=== PATIENT | female | born 1975 ===

== ENCOUNTER → 2018-06-27 | Outpatient (CLI) | payer MEDICARE, OTHER ==
[2018-06-27 17:29] LABS: Albumin 4.4 g/dL (3.80-4.90); Albumin/Globulin Ratio 1.69 (1.20-2.10); Anion Gap 9.5 mmol/L (4.00-12.00); Calcium 10.2 mg/dL (8.7-10.3); Carbon Dioxide 19.5 mmol/L (21.6-31.8); Globulin 2.6 g/dL (2.1-3.7); Potassium 5.1 mmol/L (3.5-5.5); Total Bilirubin 0.3 mg/dL (0.3-1.2)
[2018-06-27 17:49] LABS: Hemoglobin A1C 8.8 % (4.0-6.0)
== END | disposition home or self-care (01) ==
LOC: LABWHC1 08:03
PROVIDERS: ATTEND Internal Medicine Endocrinology, Diabetes & Metabolism
DX: E11.65 Type 2 diabetes mellitus with hyperglycemia (principal)
CPT/HCPCS: 36415; 80053; 80061; 82043; 82570; 83036

== ENCOUNTER → 2019-01-30 | Outpatient (CLI) | payer MEDICARE, OTHER ==
[2019-01-30 16:03] LABS: Albumin 4.3 g/dL (3.80-4.90); Albumin/Globulin Ratio 1.34 (1.60-3.17); Anion Gap 8.1 mmol/L (4.00-12.00); BUN/Creat Ratio 24.29 Ratio (12.00-20.00); Carbon Dioxide 20.9 mmol/L (21.6-31.8); Globulin 3.2 g/dL (1.6-3.3); LDL Cholesterol,Calculated 88.2 mg/dL (0.0-131.0); Potassium 5.5 mmol/L (3.5-5.5); Total Bilirubin 0.3 mg/dL (0.3-1.2); Total Protein 7.5 g/dL (6.2-8.2); VLDL Calculation 47.8 mg/dL (5.00-40.00)
[2019-01-30 19:12] LABS: Hemoglobin A1C 7.7 % (4.0-6.0)
== END | disposition home or self-care (01) ==
LOC: LABWHC1 08:01
PROVIDERS: ATTEND Internal Medicine Endocrinology, Diabetes & Metabolism
DX: E11.65 Type 2 diabetes mellitus with hyperglycemia (principal)
CPT/HCPCS: 36415; 80053; 80061; 82043; 82570; 83036; 84443

== ENCOUNTER → 2019-09-04 | Outpatient (CLI) | payer MEDICARE, OTHER ==
[2019-09-04 16:53] LABS: African American GFR (CKD) 39.5 (60.0-200.0); Albumin 4.2 g/dL (3.80-4.90); Albumin/Globulin Ratio 1.56 (1.60-3.17); Anion Gap 9.6 mmol/L (4.00-12.00); BUN/Creat Ratio 31.11 Ratio (12.00-20.00); Calcium 9.6 mg/dL (8.7-10.3); Carbon Dioxide 18.4 mmol/L (21.6-31.8); Chol/HDL Ratio 4.91; Globulin 2.7 g/dL (1.6-3.3); Non-African American GFR(CKD) 34.1 (60.0-200.0); Total Bilirubin 0.2 mg/dL (0.3-1.2); Total Protein 6.9 g/dL (6.2-8.2)
[2019-09-04 17:56] LABS: Urine Creatinine 38.2 mg/dL
[2019-09-04 20:21] LABS: Hemoglobin A1C 6.8 % (4.0-6.0)
== END | disposition home or self-care (01) ==
LOC: LABWHC1 08:15 → EEVIPCON 08:15
PROVIDERS: ATTEND Internal Medicine Endocrinology, Diabetes & Metabolism
DX: E11.65 Type 2 diabetes mellitus with hyperglycemia (principal)
CPT/HCPCS: 36415; 80053; 80061; 82043; 82570; 83036; 84443

== ENCOUNTER → 2019-12-17 | Outpatient (CLI) | payer MEDICARE, OTHER ==
[2019-12-17 16:14] LABS: African American GFR (CKD) 42.4 (60.0-200.0); Albumin 4.3 g/dL (3.80-4.90); Albumin/Globulin Ratio 1.43 (1.60-3.17); Anion Gap 10.1 mmol/L (4.00-12.00); BUN/Creat Ratio 30.59 Ratio (12.00-20.00); Calcium 9.5 mg/dL (8.7-10.3); Carbon Dioxide 15.9 mmol/L (21.6-31.8); Non-African American GFR(CKD) 36.6 (60.0-200.0); Total Bilirubin 0.3 mg/dL (0.2-1.2); Total Protein 7.3 g/dL (6.2-8.2)
== END ==
LOC: LABWHC1 08:02
PROVIDERS: ATTEND Internal Medicine Endocrinology, Diabetes & Metabolism
DX: E11.22 Type 2 diabetes mellitus with diabetic chronic kidney disease (principal)
CPT/HCPCS: 36415; 80053

== ENCOUNTER → 2020-03-27 | Outpatient (CLI) | payer MEDICARE, OTHER ==
[2020-03-27 16:03] LABS: African American GFR (CKD) 42.4 (60.0-200.0); Albumin 4.2 g/dL (3.80-4.90); Albumin/Globulin Ratio 1.45 (1.60-3.17); Anion Gap 6.3 mmol/L (4.00-12.00); BUN/Creat Ratio 31.76 Ratio (12.00-20.00); Calcium 9.3 mg/dL (8.7-10.3); Carbon Dioxide 14.7 mmol/L (21.6-31.8); Chol/HDL Ratio 4.7; Globulin 2.9 g/dL (1.6-3.3); LDL Cholesterol,Calculated 71.6 mg/dL (0.0-131.0); Non-African American GFR(CKD) 36.6 (60.0-200.0); Potassium 5.1 mmol/L (3.5-5.5); Total Bilirubin 0.2 mg/dL (0.2-1.2); Total Protein 7.1 g/dL (6.2-8.2); VLDL Calculation 50.4 mg/dL (5.00-40.00)
[2020-03-27 17:46] LABS: Hemoglobin A1C 6.6 % (4.0-6.0)
[2020-03-27 18:04] LABS: Urine Creatinine 41.6 mg/dL
== END | disposition home or self-care (01) ==
LOC: LABWHC1 07:06
PROVIDERS: ATTEND Internal Medicine Endocrinology, Diabetes & Metabolism
DX: E11.22 Type 2 diabetes mellitus with diabetic chronic kidney disease (principal); N18.9 Chronic kidney disease, unspecified
CPT/HCPCS: 36415; 80053; 80061; 82043; 82570; 83036; 84443

== ENCOUNTER → 2020-07-13 | Outpatient (CLI) | payer MEDICARE, OTHER ==
[2020-07-13 15:42] LABS: African American GFR (CKD) 39.3 (60.0-200.0); Albumin 4.3 g/dL (3.80-4.90); Albumin/Globulin Ratio 1.59 (1.60-3.17); Anion Gap 7.4 mmol/L (4.00-12.00); BUN/Creat Ratio 33.89 Ratio (12.00-20.00); Calcium 9.8 mg/dL (8.7-10.3); Carbon Dioxide 18.6 mmol/L (21.6-31.8); Chol/HDL Ratio 4.79; Globulin 2.7 g/dL (1.6-3.3); LDL Cholesterol,Calculated 89.2 mg/dL (0.0-131.0); Non-African American GFR(CKD) 33.9 (60.0-200.0); Potassium 5.5 mmol/L (3.5-5.5); Total Bilirubin 0.3 mg/dL (0.3-1.2); VLDL Calculation 39.8 mg/dL (5.00-40.00)
[2020-07-13 16:47] LABS: Urine Creatinine 38.8 mg/dL
== END | disposition home or self-care (01) ==
LOC: LABWHC1 08:00
PROVIDERS: ATTEND Internal Medicine Endocrinology, Diabetes & Metabolism
DX: E11.65 Type 2 diabetes mellitus with hyperglycemia (principal)
CPT/HCPCS: 36415; 80053; 80061; 82043; 82570; 83036; 84443

== ENCOUNTER 2020-11-11 07:56 | Inpatient (IN) | payer MEDICARE, OTHER ==
[2020-11-11 08:38] LABS: Basophils % (A) 0 %; Eosinophils % (A) 1 %; HCT 38.5 % (34.0-46.0); HGB 13.2 gm/dL (11.4-16.0); Lymphocytes # (A) 0.5 k/uL (1.0-4.8); Lymphocytes % (A) 15 %; MCH 31.4 pg (25.0-35.0); MCHC 34.2 g/dL (31.0-37.0); MCV 91.5 fL (80.0-100.0); Mean Platelet Volume 8.6; Monocytes # (A) 0.1 k/uL (0-1.0); Monocytes % (A) 2 %; Neutrophils # (A) 2.5 k/uL (1.3-7.7); Neutrophils % (A) 80 %; Platelet Count 101 k/uL (150-450); WBC 3.2 k/uL (3.8-10.6)
[2020-11-11] MEDS ORDERED: ACETAMINOPHEN TAB 500 MG TAB PO STA (08:43)
--- NOTE | 2020-11-11 08:55 | ED ---
General Adult HPI - General Chief complaint: Fall Stated complaint: Fall Time Seen by Provider: 11/11/20 08:00 Source: patient, family, EMS, RN notes reviewed, old records reviewed Mode of arrival: EMS Limitations: altered mental status - History of Present Illness Initial comments: This is a 45-year-old female who presents to the emergency room with a past medical history of significant developmental delay. Patient lives with her parents. Mother states that the patient fell today which is unusual. Patient landed on a soft stool and did not appear to injure herself according to the mother. Mom states she hasn't been eating as much lately and that is not normal. Mother has not noticed the patient coughing or being short of breath there's been no reported vomiting or diarrhea. There's been no fever that the mom knows about. Patient herself states nothing hurts however mom states she is not very reliable. Mom states she appears to be acting normal and walking normally. Mom does not know why she fell today - Related Data Home Medications Medication Instructions Recorded Confirmed Atorvastatin Calcium [Lipitor] 20 mg PO DAILY 11/11/20 11/11/20 Benazepril/Hydrochlorothiazide 1 tab PO DAILY 11/11/20 11/11/20 [Benazepril-Hctz 10-12.5 mg Tab] Canagliflozin [Invokana] 100 mg PO DAILY 11/11/20 11/11/20 Econazole 1% Cream [Spectazole] 1 applic TOPICAL BID 11/11/20 11/11/20 Escitalopram Oxalate [Lexapro] 5 mg PO DAILY 11/11/20 11/11/20 Latanoprost/Pf [Latanoprost 0.005% 1 drop LEFT EYE HS 11/11/20 11/11/20 Eye Drop] Metoprolol Tartrate [Lopressor] 50 mg PO BID 11/11/20 11/11/20 Pioglitazone HCl 45 mg PO DAILY 11/11/20 11/11/20 Repaglinide [Prandin] 2 mg PO TID 11/11/20 11/11/20 Sodium Bicarbonate Tab 650 mg PO BID PRN 11/11/20 11/11/20 Triamcinolone 0.1% Cream [Kenalog 1 applicatio TOPICAL BID 11/11/20 11/11/20 0.1% Cream] gemfibroziL [Lopid] 600 mg PO AC-BID 11/11/20 11/11/20 sitaGLIPtin PHOSPHATE [Januvia] 100 mg PO DAILY 11/11/20 11/11/20 Allergies Allergy/AdvReac Type Severity Reaction Status Date / Time No Known Allergies Allergy Verified 11/11/20 08:52 Review of Systems ROS Statement: Those systems with pertinent positive or pertinent negative responses have been documented in the HPI. ROS Other: All systems not noted in ROS Statement are negative. Past Medical History Past Medical History: Diabetes Mellitus, Hypertension History of Any Multi-Drug Resistant Organisms: None Reported Past Surgical History: No Surgical Hx Reported Past Psychological History: No Psychological Hx Reported Smoking Status: Never smoker Past Alcohol Use History: None Reported Past Drug Use History: None Reported General Exam - General Exam Comments Initial Comments: GENERAL: Patient is well-developed and well-nourished. Patient is nontoxic and well- hydrated and is in no acute distress. ENT: Neck is soft and supple. No significant lymphadenopathy is noted. Oropharynx is clear. Moist mucous membranes. Neck has full range of motion without eliciting any pain. EYES: The sclera were anicteric and conjunctiva were pink and moist. Extraocular movements were intact and pupils were equal round and reactive to light. Eyelids were unremarkable. PULMONARY: Unlabored respirations. Good breath sounds bilaterally. No audible rales rhonchi or wheezing was noted. CARDIOVASCULAR: There is a regular rate and rhythm without any murmurs gallops or rubs. ABDOMEN: Soft and nontender with normal bowel sounds. SKIN: Skin is clear with no lesions or rashes and otherwise unremarkable. NEUROLOGIC: Patient is alert and oriented times one. Cranial nerves II through XII are grossly intact. Motor and sensory are also intact. Normal speech, volume and content. Symmetrical smile. Patient ambulated without problem MUSCULOSKELETAL: Normal extremities with adequate strength and full range of motion. LYMPHATICS: No significant lymphadenopathy is noted PSYCHIATRIC: Normal psychiatric evaluation. Limitations: no limitations Course Vital Signs 11/11/20 07:59 Temperature 100.3 F H Pulse Rate 91 Respiratory 18 Rate Blood Pressure 116/65 O2 Sat by Pulse 95 Oximetry Medical Decision Making - Medical Decision Making EKG shows normal sinus rhythm at 80 bpm DC interval 148 QRS 140 QT interval 390 QTC is 41 per patient's EKG shows a right bundle branch block. No ST segment elevation or depression Chest x-ray shows bilateral pneumonia consistent with Coban. Patient has urinary tract infection started the patient on Rocephin 2 blood cultures. She has renal insufficiency. I spoke with Dr. Connell he agreed to admit the patient admitted the patient vomiting orders I consult the nephrology. - Lab Data Result diagrams: 11/11/20 08:34 11/11/20 08:58 Lab Results 11/11/20 11/11/20 11/11/20 Range/Units 08:34 08:38 08:58 WBC 3.2 L (3.8-10.6) k/uL RBC 4.20 (3.80-5.40) m/uL Hgb 13.2 (11.4-16.0) gm/dL Hct 38.5 (34.0-46.0) % MCV 91.5 (80.0-100.0) fL MCH 31.4 (25.0-35.0) pg MCHC 34.2 (31.0-37.0) g/dL RDW 13.0 (11.5-15.5) % Plt Count 101 L (150-450) k/uL MPV 8.6 Neutrophils % 80 % Lymphocytes % 15 % Monocytes % 2 % Eosinophils % 1 % Basophils % 0 % Neutrophils # 2.5 (1.3-7.7) k/uL Lymphocytes # 0.5 L (1.0-4.8) k/uL Monocytes # 0.1 (0-1.0) k/uL Eosinophils # 0.0 (0-0.7) k/uL Basophils # 0.0 (0-0.2) k/uL Sodium 134 L (137-145) mmol/L Potassium 4.6 (3.5-5.1) mmol/L Chloride 108 H (98-107) mmol/L Carbon Dioxide 12 L (22-30) mmol/L Anion Gap 14 mmol/L BUN 69 H (7-17) mg/dL Creatinine 2.71 H (0.52-1.04) mg/dL Est GFR (CKD-EPI)AfAm 24 (>60 ml/min/1.73 sqM) Est GFR (CKD-EPI)NonAf 21 (>60 ml/min/1.73 sqM) Glucose 339 H (74-99) mg/dL Calcium 9.0 (8.4-10.2) mg/dL Total Bilirubin 0.6 (0.2-1.3) mg/dL AST 72 H (14-36) U/L ALT 34 (4-34) U/L Alkaline Phosphatase 74 (38-126) U/L Total Protein 7.0 (6.3-8.2) g/dL Albumin 3.7 (3.5-5.0) g/dL Urine Color Light Yellow Urine Appearance Clear (Clear) Urine pH 5.5 (5.0-8.0) Ur Specific [place] 1.011 (1.001-1.035) Urine Protein Trace H (Negative) Urine Glucose (UA) 4+ H (Negative) Urine Ketones Negative (Negative) Urine Blood Small H (Negative) Urine Nitrite Negative (Negative) Urine Bilirubin Negative (Negative) Urine Urobilinogen <2.0 (<2.0) mg/dL Ur Leukocyte Esterase Moderate H (Negative) Urine RBC 1 (0-5) /hpf Urine WBC 46 H (0-5) /hpf Urine WBC Clumps Rare H (None) /hpf Ur Squamous Epith Cells <1 (0-4) /hpf Urine Bacteria Occasional H (None) /hpf Hyaline Casts 3 H (0-2) /lpf Urine Mucus Rare H (None) /hpf Coronavirus (PCR) (Not Detectd) 11/11/20 Range/Units 08:58 WBC (3.8-10.6) k/uL RBC (3.80-5.40) m/uL Hgb (11.4-16.0) gm/dL Hct (34.0-46.0) % MCV (80.0-100.0) fL MCH (25.0-35.0) pg MCHC (31.0-37.0) g/dL RDW (11.5-15.5) % Plt Count (150-450) k/uL MPV Neutrophils % % Lymphocytes % % Monocytes % % Eosinophils % % Basophils % % Neutrophils # (1.3-7.7) k/uL Lymphocytes # (1.0-4.8) k/uL Monocytes # (0-1.0) k/uL Eosinophils # (0-0.7) k/uL Basophils # (0-0.2) k/uL Sodium (137-145) mmol/L Potassium (3.5-5.1) mmol/L Chloride (98-107) mmol/L Carbon Dioxide (22-30) mmol/L Anion Gap mmol/L BUN (7-17) mg/dL Creatinine (0.52-1.04) mg/dL Est GFR (CKD-EPI)AfAm (>60 ml/min/1.73 sqM) Est GFR (CKD-EPI)NonAf (>60 ml/min/1.73 sqM) Glucose (74-99) mg/dL Calcium (8.4-10.2) mg/dL Total Bilirubin (0.2-1.3) mg/dL AST (14-36) U/L ALT (4-34) U/L Alkaline Phosphatase (38-126) U/L Total Protein (6.3-8.2) g/dL Albumin (3.5-5.0) g/dL Urine Color Urine Appearance (Clear) Urine pH (5.0-8.0) Ur Specific [place] (1.001-1.035) Urine Protein (Negative) Urine Glucose (UA) (Negative) Urine Ketones (Negative) Urine Blood (Negative) Urine Nitrite (Negative) Urine Bilirubin (Negative) Urine Urobilinogen (<2.0) mg/dL Ur Leukocyte Esterase (Negative) Urine RBC (0-5) /hpf Urine WBC (0-5) /hpf Urine WBC Clumps (None) /hpf Ur Squamous Epith Cells (0-4) /hpf Urine Bacteria (None) /hpf Hyaline Casts (0-2) /lpf Urine Mucus (None) /hpf Coronavirus (PCR) Detected A (Not Detectd) Disposition Clinical Impression: Acute kidney injury, Pneumonia due to COVID-19 virus, Urinary tract infection Disposition: ADMITTED IP TO THIS HOSP Referrals: Becky Mccracken MD [Primary Care Provider] - 1-2 days Time of Disposition: 09:51
[2020-11-11 08:58] LABS: Appearance,Urine Clear (Clear); Bacteria,Urine Occasional /hpf; Bilirubin,Urine Negative (Negative); Blood,Urine Small (Negative); Color,Urine Light Yellow; Glucose,Urine (UA) 4+ (Negative); Hyaline Casts,Urine 3 /lpf (0-2); Ketones,Urine Negative (Negative); Leukocyte Esterase,Urine Moderate (Negative); Mucus,Urine Rare /hpf; Nitrite,Urine Negative (Negative); PH, Urine 5.5 (5.0-8.0); Protein,Urine Trace (Negative); RBC,Urine 1 /hpf (0-5); Specific Gravity,Urine 1.011 (1.001-1.035); Squamous Epithelial Cell,Urine <1 /hpf (0-4); Urobilinogen,Urine <2.0 mg/dL (<2.0); WBC,Urine 46 /hpf (0-5)
--- NOTE | 2020-11-11 09:21 | XR ---
EXAMINATION TYPE: XR chest 2V DATE OF EXAM: 11/11/2020 COMPARISON: None HISTORY: Shortness of breath TECHNIQUE: Frontal and lateral views of the chest are obtained. FINDINGS: There are a few scattered moderate-sized focal airspace opacities in the left lung and a s mall focal opacity in the right hilar region. Findings are most consistent with pneumonic process. Al lograft is no large pleural effusion. There is no pneumothorax. The heart size is normal. The pulmonary vasculature is not congested. The osseous structures are intact. Impression: moderate scattered partially consolidative lung opacities most consistent with pneumonia. Clinical c orrelation follow-up to resolution is recommended. IMPRESSION: No acute cardiopulmonary process.
[2020-11-11 09:25] LABS: Albumin 3.7 g/dL (3.5-5.0); Potassium 4.6 mmol/L (3.5-5.1); Total Bilirubin 0.6 mg/dL (0.2-1.3)
[2020-11-11] MEDS ORDERED: cefTRIAXone IN SWFI 1,000 MG/10 ML SYRINGE IVP STA ×2 (09:40→09:58)
[2020-11-11] MEDS ORDERED: SODIUM CHLORIDE 0.9% 1,000 ML IV ONE (09:51)
[2020-11-11] MEDS ORDERED: BAMLANIVIMAB (EUA) 700 MG, ETESEVIMAB (EUA) 1,400 MG in SODIUM CHLORIDE 0.9% 50 ML IVPB ONE (10:45)
[2020-11-11] MEDS ORDERED: SODIUM BICARBONATE TAB 650 MG TAB PO PRN (11:35)
--- NOTE | 2020-11-11 14:54 | P.HPIM ---
History of Present Illness Patient is a 45-year-old the female with development delay was brought in by mother because of generalized weakness. Found to have Covid 19. Patient did have a low-grade fever yesterday as patient doesn't have any significant syndr omes unsure when her symptoms started. Patient denied any shortness of breath, body aches. Denied any diarrhea. Patient is found to have acute renal failure with creatinine of 2.71 hyponatremic along with metabolic acidosis highly elevated BUN of 6.9 baseline creatinine is around 1.5. Patient was also hypotensive patient is on anti-happens medications which include KEILY inhibitor. Patient is receiving IV fluids at this time nephrology was consulted. Patient did receive a monoclonal antibody infusion today morning. Review of Systems REVIEW OF SYSTEMS: CONSTITUTIONAL: No fever, no malaise, no fatigue. HEENT: No recent visual problems or hearing problems. Denied any sore throat. CARDIOVASCULAR: No chest pain, orthopnea, PND, no palpitations, no syncope. PULMONARY: No shortness of breath, no cough, no hemoptysis. GASTROINTESTINAL: No diarrhea, no nausea, no vomiting, no abdominal pain. NEUROLOGICAL: No headaches, no weakness, no numbness. HEMATOLOGICAL: Denies any bleeding or petechiae. GENITOURINARY: Denies any burning micturition, frequency, or urgency. MUSCULOSKELETAL/RHEUMATOLOGICAL: Denies any joint pain, swelling, or any muscle pain. ENDOCRINE: Denies any polyuria or polydipsia. The rest of the 14-point review of systems is negative. Past Medical History Past Medical History: Diabetes Mellitus, Hypertension History of Any Multi-Drug Resistant Organisms: None Reported Past Surgical History: No Surgical Hx Reported Additional Past Surgical History / Comment(s): left eye surgery as an infant Past Psychological History: No Psychological Hx Reported Smoking Status: Never smoker Past Alcohol Use History: None Reported Past Drug Use History: None Reported Medications and Allergies Home Medications Medication Instructions Recorded Confirmed Type Atorvastatin Calcium [Lipitor] 20 mg PO DAILY 11/11/20 11/11/20 History Benazepril/Hydrochlorothiazide 1 tab PO DAILY 11/11/20 11/11/20 History [Benazepril-Hctz 10-12.5 mg Tab] Canagliflozin [Invokana] 100 mg PO DAILY 11/11/20 11/11/20 History Econazole 1% Cream [Spectazole] 1 applic TOPICAL BID 11/11/20 11/11/20 History Escitalopram Oxalate [Lexapro] 5 mg PO DAILY 11/11/20 11/11/20 History Latanoprost/Pf [Latanoprost 0.005% 1 drop LEFT EYE HS 11/11/20 11/11/20 History Eye Drop] Metoprolol Tartrate [Lopressor] 50 mg PO BID 11/11/20 11/11/20 History Pioglitazone HCl 45 mg PO DAILY 11/11/20 11/11/20 History Repaglinide [Prandin] 2 mg PO TID 11/11/20 11/11/20 History Sodium Bicarbonate Tab 650 mg PO BID PRN 11/11/20 11/11/20 History Triamcinolone 0.1% Cream [Kenalog 1 applicatio TOPICAL BID 11/11/20 11/11/20 History 0.1% Cream] gemfibroziL [Lopid] 600 mg PO AC-BID 11/11/20 11/11/20 History sitaGLIPtin PHOSPHATE [Januvia] 100 mg PO DAILY 11/11/20 11/11/20 History Allergies Allergy/AdvReac Type Severity Reaction Status Date / Time No Known Allergies Allergy Verified 11/11/20 08:52 Physical Exam Vitals: Vital Signs Temp Pulse Pulse Resp BP BP Pulse Ox 11/11/20 13:59 74 18 98/55 94 L 11/11/20 10:51 98.6 F 18 97/56 95 11/11/20 07:59 100.3 F H 91 18 116/65 95 Intake and Output 11/10/20 11/11/20 11/11/20 22:59 06:59 14:59 Other: Weight 95.254 kg PHYSICAL EXAMINATION: GENERAL: The patient is alert and oriented x3, not in any acute distress. Well developed, well nourished. HEENT: Pupils are round and equally reacting to light. EOMI. No scleral icterus. No conjunctival pallor. Normocephalic, atraumatic. No pharyngeal erythema. No thyromegaly. CARDIOVASCULAR: S1 and S2 present. No murmurs, rubs, or gallops. PULMONARY: Chest is clear to auscultation, no wheezing or crackles. ABDOMEN: Soft, nontender, nondistended, normoactive bowel sounds. No palpable organomegaly. MUSCULOSKELETAL: No joint swelling or deformity. EXTREMITIES: No cyanosis, clubbing, or pedal edema. NEUROLOGICAL: Gross neurological examination did not reveal any focal deficits. SKIN: No rashes. Results CBC & Chem 7: 11/11/20 08:34 11/11/20 08:58 Labs: Abnormal Lab Results - Last 24 Hours (Table) 11/11/20 11/11/20 11/11/20 Range/Units 08:34 08:38 08:58 WBC 3.2 L (3.8-10.6) k/uL Plt Count 101 L (150-450) k/uL Lymphocytes # 0.5 L (1.0-4.8) k/uL Sodium 134 L (137-145) mmol/L Chloride 108 H (98-107) mmol/L Carbon Dioxide 12 L (22-30) mmol/L BUN 69 H (7-17) mg/dL Creatinine 2.71 H (0.52-1.04) mg/dL Glucose 339 H (74-99) mg/dL AST 72 H (14-36) U/L Urine Protein Trace H (Negative) Urine Glucose (UA) 4+ H (Negative) Urine Blood Small H (Negative) Ur Leukocyte Esterase Moderate H (Negative) Urine WBC 46 H (0-5) /hpf Urine WBC Clumps Rare H (None) /hpf Urine Bacteria Occasional H (None) /hpf Hyaline Casts 3 H (0-2) /lpf Urine Mucus Rare H (None) /hpf Coronavirus (PCR) (Not Detectd) 11/11/20 Range/Units 08:58 WBC (3.8-10.6) k/uL Plt Count (150-450) k/uL Lymphocytes # (1.0-4.8) k/uL Sodium (137-145) mmol/L Chloride (98-107) mmol/L Carbon Dioxide (22-30) mmol/L BUN (7-17) mg/dL Creatinine (0.52-1.04) mg/dL Glucose (74-99) mg/dL AST (14-36) U/L Urine Protein (Negative) Urine Glucose (UA) (Negative) Urine Blood (Negative) Ur Leukocyte Esterase (Negative) Urine WBC (0-5) /hpf Urine WBC Clumps (None) /hpf Urine Bacteria (None) /hpf Hyaline Casts (0-2) /lpf Urine Mucus (None) /hpf Coronavirus (PCR) Detected A (Not Detectd) Microbiology - Last 24 Hours (Table) 11/11/20 08:38 Urine Culture - Preliminary Urine,Voided Thrombosis Risk Factor Assmnt - Choose All That Apply Any of the Below Risk Factors Present?: Yes Each Factor Represents 1 point: Age 41-60 years Other Risk Factors: No Other congenital or acquired thrombophilia - If yes, enter type in comment: No Thrombosis Risk Factor Assessment Total Risk Factor Score: 1 Thrombosis Risk Factor Assessment Level: Low Risk Assessment and Plan Plan: -Acute renal failure: Prerenal azotemia, from dehydration intravascular depletion from a infection. Patient was started on IV fluids and repeat basic metabolic profile again tomorrow. Creatinine expected to improve with this. -Covid 19 pneumonia. Patient was started on Covid vitamins patient will not need any systemic steroids at this time patient received multiple antibody infusion patient is not hypoxic not requiring oxygen. -Type 2 diabetes mellitus uncontrolled elevated blood sugars continue with present regimen along with sliding scale titration depending on her blood sugars tomorrow - Abnormal urine analysis possibly asymptomatic bacteriuria patient was started on IV antibiotics which probably will be continued for now will not require any antibiotics upon discharge -Hypovolemic hyponatremia: Expected with IV fluids -Non-anion gap as well as anion gap metabolic acidosis secondary to acute renal failure patient may have had lactic acidosis. -Chronic kidney disease stage III from diabetic nephropathy patient has trace protein in the urine. -Hyperlipidemia -Hypertension patient is presently hypotensive hold off antiemesis medications except for beta eddie to avoid reflex tachycardia -DVT prophylaxis with subcutaneous heparin not a candidate for Lovenox because o f renal failure
[2020-11-11] MEDS ORDERED: SODIUM CHLORIDE 0.9% 1,000 ML IV SCH (15:00)
[2020-11-11] MEDS: REPAGLINIDE 1 MG TAB PO SCH ×2 (16:25→21:51)
[2020-11-11] MEDS: HEPARIN SODIUM,PORCINE/PF 5,000 UNIT/0.5 ML SYRINGE SQ SCH (16:25)
--- NOTE | 2020-11-11 16:25 | P.NPCON ---
History of Present Illness - Reason for Consult Consult date: 11/11/20 acute renal failure - Chief Complaint Falls at home - History of Present Illness 45-year-old female admitted to the hospital with the above complaints. She has developmental today. Most of the history obtained from the chart and the nursing staff. She has chronic kidney disease stage III with a baseline creatinine of 1.7-1.8 MG per DL, suspected diabetes and hypertension. She is on invonka, benazapril/hydrochlorothiazide, at home. She had poor oral intake prior to admission. No nausea vomiting or diarrhea. No recent NSAID use or contrast studies. She had urinary tract infection and Covid 19 Review of Systems Constitutional: Reports as per HPI Past Medical History Past Medical History: Diabetes Mellitus, Hypertension History of Any Multi-Drug Resistant Organisms: None Reported Past Surgical History: No Surgical Hx Reported Additional Past Surgical History / Comment(s): left eye surgery as an Past Psychological History: No Psychological Hx Reported Smoking Status: Never smoker Past Alcohol Use History: None Reported Past Drug Use History: None Reported Medications and Allergies Home Medications Medication Instructions Recorded Confirmed Type Atorvastatin Calcium [Lipitor] 20 mg PO DAILY 11/11/20 11/11/20 History Benazepril/Hydrochlorothiazide 1 tab PO DAILY 11/11/20 11/11/20 History [Benazepril-Hctz 10-12.5 mg Tab] Canagliflozin [Invokana] 100 mg PO DAILY 11/11/20 11/11/20 History Econazole 1% Cream [Spectazole] 1 applic TOPICAL BID 11/11/20 11/11/20 History Escitalopram Oxalate [Lexapro] 5 mg PO DAILY 11/11/20 11/11/20 History Latanoprost/Pf [Latanoprost 0.005% 1 drop LEFT EYE HS 11/11/20 11/11/20 History Eye Drop] Metoprolol Tartrate [Lopressor] 50 mg PO BID 11/11/20 11/11/20 History Pioglitazone HCl 45 mg PO DAILY 11/11/20 11/11/20 History Repaglinide [Prandin] 2 mg PO TID 11/11/20 11/11/20 History Sodium Bicarbonate Tab 650 mg PO BID PRN 11/11/20 11/11/20 History Triamcinolone 0.1% Cream [Kenalog 1 applicatio TOPICAL BID 11/11/20 11/11/20 History 0.1% Cream] gemfibroziL [Lopid] 600 mg PO AC-BID 11/11/20 11/11/20 History sitaGLIPtin PHOSPHATE [Januvia] 100 mg PO DAILY 11/11/20 11/11/20 History Allergies Allergy/AdvReac Type Severity Reaction Status Date / Time No Known Allergies Allergy Verified 11/11/20 08:52 Physical Exam Vitals: Vital Signs Temp Pulse Pulse Resp BP BP Pulse Ox 11/11/20 13:59 74 18 98/55 94 L 11/11/20 10:51 98.6 F 18 97/56 95 11/11/20 07:59 100.3 F H 91 18 116/65 95 Intake and Output 11/11/20 11/11/20 11/11/20 06:59 14:59 22:59 Other: Weight 95.254 kg Exam limited secondary to Covid 19 pandemic to limit PPE Results - Lab Results Most recent lab results Calcium 9.0 mg/dL (8.4-10.2) 11/11/20 08:58 11/11/20 08:34 11/11/20 08:58 Assessment and Plan Assessment: #1 acute kidney injury secondary to hemodynamic ATN with low blood pressures and concomitant use of hydrochlorothiazide and benazapril. #2 CK D stage III suspected diabetes and hypertension, baseline creatinine 1.7- 1.8 MG per DL. #3 complicated urinary tract infection #4 hypotensive episodes #5 metabolic acidosis Plan: #1 change normal saline to bicarbonate drip. Agree with holding hydrochlorothiazide and benazapril #2 hold invikona with acute kidney injury #3 check CPK. Bladder scan to rule out urinary retention #4 renal ultrasound for size #5 labs in the morning. #6 avoid nephrotoxic agents and hypotensive episodes.
[2020-11-11 17:21] LABS: Glucose,Whole Blood 386 mg/dL (75-99)
--- NOTE | 2020-11-11 17:23 | US ---
EXAMINATION TYPE: US renals and bladder DATE OF EXAM: 11/11/2020 COMPARISON: NONE CLINICAL HISTORY: diomedes. DIOMEDES, Covid EXAM MEASUREMENTS: Right Kidney: 11.6 x 5.1 x 4.7 cm Left Kidney: 11.3 x 5.3 x 4.4 cm Right Kidney: No evidence of hydro, cyst lower lateral= 1.2 x 1.2 x 1.2 cm Left Kidney: No evidence of hydro, cyst lower lateral= 1.1 x 0.9 x 1.2 cm Bladder: wnl Bilateral Jets seen: No IMPRESSION: No evidence of solid renal mass or obstruction. No evidence of a bladder mass.
[2020-11-11] MEDS: INSULIN ASPART (NovoLOG) 100 UNIT/ML VIAL SQ SCH ×2 (17:28→21:52)
[2020-11-11] MEDS: DEXTROSE 5% IN WATER 1,000 ML with SODIUM BICARB (1 MEQ/ML) 150 ML IV SCH (17:42)
[2020-11-11 19:45] LABS: Glucose,Whole Blood 442 mg/dL (75-99)
[2020-11-11] MEDS: CLOTRIMAZOLE 1% CREAM 30 GM TUBE TOPICAL SCH (21:51)
[2020-11-11] MEDS: METOPROLOL TARTRATE 50 MG TAB PO SCH (21:51)
[2020-11-11] MEDS: TRIAMCINOLONE 0.1% CREAM 80 GM TUBE TOPICAL SCH (21:51)
[2020-11-12] MEDS: HEPARIN SODIUM,PORCINE/PF 5,000 UNIT/0.5 ML SYRINGE SQ SCH ×3 (01:02→16:42)
[2020-11-12 07:57] LABS: Glucose,Whole Blood 366 mg/dL (75-99)
[2020-11-12] MEDS: INSULIN ASPART (NovoLOG) 100 UNIT/ML VIAL SQ SCH ×4 (08:33→22:08)
[2020-11-12] MEDS ORDERED: Canagliflozin [Invokana] PO SCH (09:00)
[2020-11-12] MEDS: FENOFIBRATE 160 MG TAB PO SCH (09:36)
[2020-11-12] MEDS: ATORVASTATIN 20 MG TAB PO SCH (09:36)
[2020-11-12] MEDS: REPAGLINIDE 1 MG TAB PO SCH ×3 (09:38→22:07)
[2020-11-12] MEDS: ESCITALOPRAM 5 MG TAB PO SCH (09:38)
[2020-11-12] MEDS: LINAGLIPTIN 5 MG TABLET PO SCH (09:38)
[2020-11-12] MEDS: PIOGLITAZONE 45 MG TAB PO SCH (09:38)
[2020-11-12] MEDS: CLOTRIMAZOLE 1% CREAM 30 GM TUBE TOPICAL SCH ×2 (10:20→22:07)
[2020-11-12] MEDS: TRIAMCINOLONE 0.1% CREAM 80 GM TUBE TOPICAL SCH ×2 (10:20→22:07)
--- NOTE | 2020-11-12 11:59 | P.PN ---
Subjective Patient is a 45-year-old the female with development delay was brought in by mother because of generalized weakness. Found to have Covid 19. Patient did have a low-grade fever yesterday as patient doesn't have any significant syndromes unsure when her symptoms started. Patient denied any shortness of breath, body aches. Denied any diarrhea. Patient is found to have acute renal failure with creatinine of 2.71 hyponatremic along with metabolic acidosis highly elevated BUN of 6.9 baseline creatinine is around 1.5. Patient was also hypotensive patient is on anti-hypertensive medications which include KEILY inhibitor. Patient is receiving IV fluids at this time nephrology was consulted. Patient did receive a monoclonal antibody infusion today morning. 11/12/2020 Unfortunately patient is requiring oxygen and desaturated without oxygen because of which I'm consulted pulmonary patient will be started on Decadron do not have any repeat basic metabolic profile available at this time. Patient's blood sugars are very high patient will be started on long-acting insulin tonight along with sliding scale with each meal. Patient received monoclonal antibody infusion yesterday Review of systems: Patient is mostly nonverbal but does answer questions say she is fine for most of the questions. All inpatient medications were reviewed and appropriate changes in these medications as dictated in the interval history and assessment and plan. Objective - Vital Signs Vital signs: Vital Signs Temp 98 F 11/12/20 07:06 Pulse 88 11/12/20 11:43 Resp 24 11/12/20 07:06 BP 102/66 11/12/20 07:06 Pulse Ox 87 L 11/12/20 11:43 Intake & Output 11/11/20 11/12/20 11/12/20 18:59 06:59 18:59 Output Total 1100 Balance -1100 Weight 95.254 kg Output: Urine 1100 Other: # Voids 2 2 1 - Exam PHYSICAL EXAMINATION: GENERAL: The patient is alert and mostly nonverbal unable to assess his orie ntation, not in any acute distress. Well developed, well nourished. Does appear to have some developmental delay HEENT: Pupils are round and equally reacting to light. EOMI. No scleral icterus. No conjunctival pallor. Normocephalic, atraumatic. No pharyngeal erythema. No thyromegaly. CARDIOVASCULAR: S1 and S2 present. No murmurs, rubs, or gallops. PULMONARY: Chest is clear to auscultation, no wheezing or crackles. ABDOMEN: Soft, nontender, nondistended, normoactive bowel sounds. No palpable organomegaly. MUSCULOSKELETAL: No joint swelling or deformity. EXTREMITIES: No cyanosis, clubbing, or pedal edema. NEUROLOGICAL: Gross neurological examination did not reveal any focal deficits. SKIN: No rashes. - Labs CBC & Chem 7: 11/11/20 08:34 11/11/20 08:58 Labs: Abnormal Lab Results - Last 24 Hours (Table) 11/11/20 11/11/20 11/11/20 Range/Units 08:58 17:09 19:43 POC Glucose (mg/dL) 386 H 442 H (75-99) mg/dL Creatine Kinase 232 H (30-135) U/L 11/12/20 Range/Units 07:56 POC Glucose (mg/dL) 366 H (75-99) mg/dL Creatine Kinase (30-135) U/L Microbiology - Last 24 Hours (Table) 11/11/20 08:38 Urine Culture - Preliminary Urine,Voided Assessment and Plan Plan: -Acute renal failure: Prerenal azotemia, from dehydration intravascular depletion from a infection. Patient was started on IV fluids and basic metabolic profile again is not available today. Creatinine expected to improve with this. Holding off on KEILY inhibitor and hydrochlorothiazide -Covid 19 pneumonia, acute hypoxia. Patient was started on Covid vitamins patient will will be started on systemic steroids at this time patient received monoclonal antibody infusion. -Type 2 diabetes mellitus uncontrolled elevated blood sugars continue with present regimen along with sliding scale titration depending on her blood sugars tomorrow - Abnormal urine analysis possibly asymptomatic bacteriuria patient was started on IV antibiotics which probably will be continued for now will not require any antibiotics upon discharge. Patient will complete 3 doses by tomorrow and medics will be discontinued then -Hypovolemic hyponatremia: Expected with IV fluids -Non-anion gap as well as anion gap metabolic acidosis secondary to acute renal failure patient may have had lactic acidosis. -Chronic kidney disease stage III from diabetic nephropathy patient has trace protein in the urine. -Hyperlipidemia -Hypertension patient is presently hypotensive hold off antiemesis medications except for beta eddie to avoid reflex tachycardia -DVT prophylaxis with subcutaneous heparin not a candidate for Lovenox because of renal failure
[2020-11-12 12:16] LABS: Anion Gap 17.1 mmol/L (4.00-12.00); BUN/Creat Ratio 25.19 Ratio (12.00-20.00); Calcium 8.6 mg/dL (8.7-10.3); Carbon Dioxide 14.9 mmol/L (21.6-31.8); Non-African American GFR(CKD) 20.7 (60.0-200.0); Potassium 4.4 mmol/L (3.5-5.5)
[2020-11-12 12:16] LABS: Glucose,Whole Blood 346 mg/dL (75-99)
[2020-11-12] MEDS: DEXTROSE 5% IN WATER 1,000 ML with SODIUM BICARB (1 MEQ/ML) 150 ML IV SCH (12:19)
[2020-11-12] MEDS: METOPROLOL TARTRATE 50 MG TAB PO SCH ×2 (12:40→22:13)
[2020-11-12] MEDS: ZINC SULFATE 220 MG CAP PO SCH (12:43)
[2020-11-12] MEDS: dexAMETHasone 2 MG TAB PO SCH (12:43)
--- NOTE | 2020-11-12 14:31 | P.PN ---
Subjective Progress Note Date: 11/12/20 Follow-up for acute kidney injury. Objective - Vital Signs Vital signs: Vital Signs Temp 98 F 11/12/20 07:06 Pulse 79 11/12/20 12:34 Resp 24 11/12/20 07:06 BP 87/58 11/12/20 12:34 Pulse Ox 93 L 11/12/20 12:34 Intake & Output 11/11/20 11/12/20 11/12/20 18:59 06:59 18:59 Output Total 1100 Balance -1100 Weight 95.254 kg Output: Urine 1100 Other: # Voids 2 2 1 - Exam Exam limited secondary to Covid 19 pandemic to limit PPE - Labs CBC & Chem 7: 11/11/20 08:34 11/12/20 05:53 Labs: Abnormal Lab Results - Last 24 Hours (Table) 11/11/20 11/11/20 11/11/20 Range/Units 08:58 17:09 19:43 Carbon Dioxide (21.6-31.8) mmol/L Anion Gap (4.00-12.00) mmol/L BUN (9.0-27.0) mg/dL Creatinine (0.6-1.5) mg/dL Est GFR (CKD-EPI)AfAm (60.0-200.0) Est GFR (CKD-EPI)NonAf (60.0-200.0) BUN/Creatinine Ratio (12.00-20.00) Ratio Glucose (70-110) mg/dL POC Glucose (mg/dL) 386 H 442 H (75-99) mg/dL Calcium (8.7-10.3) mg/dL Creatine Kinase 232 H (30-135) U/L 11/12/20 11/12/20 11/12/20 Range/Units 05:53 07:56 12:15 Carbon Dioxide 14.9 L (21.6-31.8) mmol/L Anion Gap 17.10 H (4.00-12.00) mmol/L BUN 68.0 H (9.0-27.0) mg/dL Creatinine 2.7 H (0.6-1.5) mg/dL Est GFR (CKD-EPI)AfAm 24.0 L (60.0-200.0) Est GFR (CKD-EPI)NonAf 20.7 L (60.0-200.0) BUN/Creatinine Ratio 25.19 H (12.00-20.00) Ratio Glucose 379 H (70-110) mg/dL POC Glucose (mg/dL) 366 H 346 H (75-99) mg/dL Calcium 8.6 L (8.7-10.3) mg/dL Creatine Kinase (30-135) U/L Microbiology - Last 24 Hours (Table) 11/11/20 08:38 Urine Culture - Preliminary Urine,Voided Gram Neg Bacilli Assessment and Plan Assessment: #1 acute kidney injury secondary to hemodynamic ATN with low blood pressures and concomitant use of hydrochlorothiazide and benazapril. #2 CK D stage III suspected diabetes and hypertension, baseline creatinine 1.7- 1.8 MG per DL. #3 complicated urinary tract infection #4 hypotensive episodes #5 metabolic acidosis #6 diabetes uncontrolled Plan: #1 continue bicarb drip, renal function stable. Agree with holding hydrochlorothiazide and benazapril #2 hold invikona with acute kidney injury #3 check ABG for metabolic acidosis. #4 renal ultrasound no hydronephrosis. #5 strict diabetes control. #6 avoid nephrotoxic agents and hypotensive episodes. #7 add midodrine for hemodynamic support.
[2020-11-12] MEDS: MIDODRINE 5 MG TAB PO SCH (15:17)
[2020-11-12 15:22] LABS: ABG Base Excess -0.6 mmol/L; ABG HCO3 23 mmol/L (21-25); ABG Oxygen Saturation 91.7 % (94-97); ABG PCO2 33 mmHg (35-45); ABG PH 7.46 (7.35-7.45); ABG PO2 67 mmHg (83-108); ABG TCO2 24 mmol/L (19-24); Allen Test Performed? Yes
[2020-11-12] MEDS: SODIUM CHLORIDE 0.9% 1,000 ML IV SCH (16:42)
[2020-11-12 17:56] LABS: Glucose,Whole Blood 329 mg/dL (75-99)
[2020-11-12 19:47] LABS: Glucose,Whole Blood 452 mg/dL (75-99)
[2020-11-12] MEDS ORDERED: INSULIN DETEMIR (LEVEMIR) 100 UNIT/ML SYR SQ SCH (21:00)
[2020-11-12] MEDS: LATANOPROST 0.005% OPHTH DROPS 2.5 ML BTL LEFT EYE SCH (22:07)
[2020-11-13] MEDS: HEPARIN SODIUM,PORCINE/PF 5,000 UNIT/0.5 ML SYRINGE SQ SCH ×3 (00:03→18:01)
[2020-11-13] MEDS: SODIUM CHLORIDE 0.9% 1,000 ML IV SCH ×2 (04:46→16:40)
[2020-11-13 07:05] LABS: Glucose,Whole Blood 463 mg/dL (75-99)
[2020-11-13] MEDS: ATORVASTATIN 20 MG TAB PO SCH (08:52)
[2020-11-13] MEDS: FENOFIBRATE 160 MG TAB PO SCH (08:52)
[2020-11-13] MEDS: ZINC SULFATE 220 MG CAP PO SCH (08:52)
[2020-11-13] MEDS: INSULIN ASPART (NovoLOG) 100 UNIT/ML VIAL SQ SCH ×6 (08:52→21:36)
[2020-11-13] MEDS: dexAMETHasone 2 MG TAB PO SCH (08:52)
[2020-11-13] MEDS: CLOTRIMAZOLE 1% CREAM 30 GM TUBE TOPICAL SCH ×2 (08:53→21:36)
[2020-11-13] MEDS: LINAGLIPTIN 5 MG TABLET PO SCH (08:53)
[2020-11-13] MEDS: MIDODRINE 5 MG TAB PO SCH ×3 (08:53→18:01)
[2020-11-13] MEDS: PIOGLITAZONE 45 MG TAB PO SCH (08:53)
[2020-11-13] MEDS: METOPROLOL TARTRATE 50 MG TAB PO SCH ×2 (08:53→21:14)
[2020-11-13] MEDS: TRIAMCINOLONE 0.1% CREAM 80 GM TUBE TOPICAL SCH ×2 (08:54→21:37)
[2020-11-13 09:08] LABS: African American GFR (CKD) 31 (>60 ml/min/1.73 sqM); Anion Gap 12 mmol/L; Blood Urea Nitrogen 70 mg/dL (7-17); Calcium 8.9 mg/dL (8.4-10.2); Carbon Dioxide 19 mmol/L (22-30); Chloride 106 mmol/L (98-107); Glucose 409 mg/dL (74-99); Non-African American GFR(CKD) 27 (>60 ml/min/1.73 sqM); Potassium 4.9 mmol/L (3.5-5.1); Sodium 137 mmol/L (137-145)
[2020-11-13] MEDS: ESCITALOPRAM 5 MG TAB PO SCH (10:12)
[2020-11-13] MEDS: REPAGLINIDE 1 MG TAB PO SCH ×3 (10:13→18:01)
[2020-11-13 11:30] LABS: Glucose,Whole Blood 392 mg/dL (75-99)
--- NOTE | 2020-11-13 14:41 | P.CNPUL ---
History of Present Illness Consult date: 11/13/20 Reason for consult: pneumonia Chief complaint: Generalized weakness and low-grade fever History of present illness: This is a 45-year-old female with history of developmental delay. Lives with her parents, noted to be generally weak by her mother, and she fell fell at home which is unusual for the patient according to her mother. No self-inflicted injury. And according to her mother she has not been eating well, did not have any shortness of breath or diarrhea. She was noted to have low-grade fever in the ER. And according to her mother she was generally weak. Hence patient was tested for rotavirus, and she was noted to be positive for covid 19 chest x-ray showed multiple focal infiltrates bilaterally left more so than right. And it is consistent with Covid 19 pneumonia. Her O2 saturation was mostly in the 90s since admission except one O2 saturation was 89% on room air. Labs showed evidence of leukopenia with WBC count of 3.2, thrombocytopenia with platelets of 101. And the relative lymphopenia. Patient was also noted to have possibly acute kidney injury with BUN 69 and creatinine 2.71. She was also noted to have a mild anion gap metabolic acidosis with anion gap of 17. Her sugars were high as high as 452. Negative ketones in the urine. Considering her abnormal chest x-ray, abnormal renal profile, abnormal labs and clinical symptoms, patient was admitted and this consult was initiated. The patient herself is a very poor historian. She does have significant developmental delay. Review of Systems ROS unobtainable: due to mental status Past Medical History Past Medical History: Diabetes Mellitus, Hypertension History of Any Multi-Drug Resistant Organisms: None Reported Past Surgical History: No Surgical Hx Reported Additional Past Surgical History / Comment(s): left eye surgery as an infant Past Psychological History: No Psychological Hx Reported Smoking Status: Never smoker Past Alcohol Use History: None Reported Past Drug Use History: None Reported Medications and Allergies Home Medications Medication Instructions Recorded Confirmed Type Atorvastatin Calcium [Lipitor] 20 mg PO DAILY 11/11/20 11/11/20 History Benazepril/Hydrochlorothiazide 1 tab PO DAILY 11/11/20 11/11/20 History [Benazepril-Hctz 10-12.5 mg Tab] Canagliflozin [Invokana] 100 mg PO DAILY 11/11/20 11/11/20 History Econazole 1% Cream [Spectazole] 1 applic TOPICAL BID 11/11/20 11/11/20 History Escitalopram Oxalate [Lexapro] 5 mg PO DAILY 11/11/20 11/11/20 History Latanoprost/Pf [Latanoprost 0.005% 1 drop LEFT EYE HS 11/11/20 11/11/20 History Eye Drop] Metoprolol Tartrate [Lopressor] 50 mg PO BID 11/11/20 11/11/20 History Pioglitazone HCl 45 mg PO DAILY 11/11/20 11/11/20 History Repaglinide [Prandin] 2 mg PO TID 11/11/20 11/11/20 History Sodium Bicarbonate Tab 650 mg PO BID PRN 11/11/20 11/11/20 History Triamcinolone 0.1% Cream [Kenalog 1 applicatio TOPICAL BID 11/11/20 11/11/20 History 0.1% Cream] gemfibroziL [Lopid] 600 mg PO AC-BID 11/11/20 11/11/20 History sitaGLIPtin PHOSPHATE [Januvia] 100 mg PO DAILY 11/11/20 11/11/20 History Allergies Allergy/AdvReac Type Severity Reaction Status Date / Time No Known Allergies Allergy Verified 11/11/20 08:52 Physical Exam Vitals: Vital Signs Temp Pulse Resp BP Pulse Ox 11/13/20 08:49 98.6 F 56 L 16 88/58 91 L 11/13/20 02:00 97.5 F L 80 16 116/75 92 L 11/12/20 20:00 98.8 F 63 18 95/62 94 L Intake and Output 11/12/20 11/13/20 11/13/20 22:59 06:59 14:59 Output Total 400 800 Balance -400 -800 Output: Urine 400 800 Other: Voiding Method Toilet Physical Exam: Revealed 45-year-old female obese, in no distress, presently on r oom air. Head: Atraumatic, normocephalic. HEENT: PERRLA, EOMI, nonicteric, dry mucous membranes [Neck is supple.] [No neck masses.] [No thyromegaly.] [No JVD.] Chest: [Symmetrical chest expansion, minimal fine crackles at the bases especially at the left base. Cardiac Exam: Distant S1 and S2, no S3 gallop, no murmur. Abdomen: [Obese, Soft, nontender, no megaly, no rebound, no guarding, normal bowel sounds.] Extremities: [No clubbing, no edema, no cyanosis.] Neurological Exam: Follows simple instructions, but extremely slow and has mental developmental delay Psychiatric: Normal mood, pleasant affect, slow mentation. Skin: No rashes. Results - Laboratory Findings CBC and BMP: 11/11/20 08:34 11/13/20 05:47 ABG ABG pH 7.46 (7.35-7.45) H 11/12/20 15:12 ABG pCO2 33 mmHg (35-45) L 11/12/20 15:12 ABG pO2 67 mmHg (83-108) L 11/12/20 15:12 ABG O2 Saturation 91.7 % (94-97) L 11/12/20 15:12 Abnormal lab findings: Abnormal Labs 11/11/20 11/11/20 11/11/20 08:34 08:38 08:58 WBC 3.2 L Plt Count 101 L Lymphocytes # 0.5 L ABG pH ABG pCO2 ABG pO2 ABG O2 Saturation Sodium 134 L Chloride 108 H Carbon Dioxide 12 L Anion Gap BUN 69 H Creatinine 2.71 H Est GFR (CKD-EPI)AfAm Est GFR (CKD-EPI)NonAf BUN/Creatinine Ratio Glucose 339 H POC Glucose (mg/dL) Calcium AST 72 H Creatine Kinase Urine Protein Trace H Urine Glucose (UA) 4+ H Urine Blood Small H Ur Leukocyte Esterase Moderate H Urine WBC 46 H Urine WBC Clumps Rare H Urine Bacteria Occasional H Hyaline Casts 3 H Urine Mucus Rare H Coronavirus (PCR) 11/11/20 11/11/20 11/11/20 08:58 08:58 17:09 WBC Plt Count Lymphocytes # ABG pH ABG pCO2 ABG pO2 ABG O2 Saturation Sodium Chloride Carbon Dioxide Anion Gap BUN Creatinine Est GFR (CKD-EPI)AfAm Est GFR (CKD-EPI)NonAf BUN/Creatinine Ratio Glucose POC Glucose (mg/dL) 386 H Calcium AST Creatine Kinase 232 H Urine Protein Urine Glucose (UA) Urine Blood Ur Leukocyte Esterase Urine WBC Urine WBC Clumps Urine Bacteria Hyaline Casts Urine Mucus Coronavirus (PCR) Detected A 11/11/20 11/12/20 11/12/20 19:43 05:53 07:56 WBC Plt Count Lymphocytes # ABG pH ABG pCO2 ABG pO2 ABG O2 Saturation Sodium Chloride Carbon Dioxide 14.9 L Anion Gap 17.10 H BUN 68.0 H Creatinine 2.7 H Est GFR (CKD-EPI)AfAm 24.0 L Est GFR (CKD-EPI)NonAf 20.7 L BUN/Creatinine Ratio 25.19 H Glucose 379 H POC Glucose (mg/dL) 442 H 366 H Calcium 8.6 L AST Creatine Kinase Urine Protein Urine Glucose (UA) Urine Blood Ur Leukocyte Esterase Urine WBC Urine WBC Clumps Urine Bacteria Hyaline Casts Urine Mucus Coronavirus (PCR) 11/12/20 11/12/20 11/12/20 12:15 15:12 17:55 WBC Plt Count Lymphocytes # ABG pH 7.46 H ABG pCO2 33 L ABG pO2 67 L ABG O2 Saturation 91.7 L Sodium Chloride Carbon Dioxide Anion Gap BUN Creatinine Est GFR (CKD-EPI)AfAm Est GFR (CKD-EPI)NonAf BUN/Creatinine Ratio Glucose POC Glucose (mg/dL) 346 H 329 H Calcium AST Creatine Kinase Urine Protein Urine Glucose (UA) Urine Blood Ur Leukocyte Esterase Urine WBC Urine WBC Clumps Urine Bacteria Hyaline Casts Urine Mucus Coronavirus (PCR) 11/12/20 11/13/20 11/13/20 19:46 05:47 07:03 WBC Plt Count Lymphocytes # ABG pH ABG pCO2 ABG pO2 ABG O2 Saturation Sodium Chloride Carbon Dioxide 19 L Anion Gap BUN 70 H Creatinine 2.21 H Est GFR (CKD-EPI)AfAm Est GFR (CKD-EPI)NonAf BUN/Creatinine Ratio Glucose 409 H POC Glucose (mg/dL) 452 H 463 H Calcium AST Creatine Kinase Urine Protein Urine Glucose (UA) Urine Blood Ur Leukocyte Esterase Urine WBC Urine WBC Clumps Urine Bacteria Hyaline Casts Urine Mucus Coronavirus (PCR) 11/13/20 11:28 WBC Plt Count Lymphocytes # ABG pH ABG pCO2 ABG pO2 ABG O2 Saturation Sodium Chloride Carbon Dioxide Anion Gap BUN Creatinine Est GFR (CKD-EPI)AfAm Est GFR (CKD-EPI)NonAf BUN/Creatinine Ratio Glucose POC Glucose (mg/dL) 392 H Calcium AST Creatine Kinase Urine Protein Urine Glucose (UA) Urine Blood Ur Leukocyte Esterase Urine WBC Urine WBC Clumps Urine Bacteria Hyaline Casts Urine Mucus Coronavirus (PCR) - Diagnostic Findings Chest x-ray: image reviewed (As noted in HPI.) Assessment and Plan Assessment: Impression: Acute covid 19 pneumonia, without hypoxia. Acute on chronic kidney disease., likely secondary to hypotension along with the fact that the patient is on diuretics and on been as appropriate. Patient had a baseline creatinine of 1.7 Pyuria and bacteriuria, suspect acute urinary tract infection based on the urinalysis, final cultures are pending. Acute anion gap metabolic acidosis secondary to acute kidney injury. History of type 2 diabetes. History of developmental delay. History of hypertension. Recommendation: Continue the Covid 19 cocktail, patient does not qualify for REM or TOCI or convalescent plasma or even possibly Decadron. Continue to monitor oxygenation and supply oxygen if necessary. Continue Rocephin for presumptive urinary tract infection. Adjust antibiotics as per cultures. Continue close monitoring and treatment of his sugars. Continue to hold hydrochlorothiazide and denies appropriate. Agree with sodium bicarb drip. Avoid nephrotoxic agents We'll continue to follow. Time with Patient: Greater than 30
--- NOTE | 2020-11-13 15:43 | PN ---
PROGRESS NOTE Patient is seen for followup for acute kidney injury associated with underlying COVID- 19 infection. Renal function has improved, with creatinine down to 2.2 from 2.7. Patient does have underlying CKD with previous creatinine 1.8 to 1.7 in July and March of 2020. PHYSICAL EXAMINATION: On examination today, blood pressure 116/75, heart rate 80 per minute. Patient is afebrile. She is not examined due to underlying COVID infection. No significant edema noted in lower extremities. Patient is not communicating much. LABS: Sodium 137, potassium 4.9, chloride 106. CO2 is 19, BUN 70, serum creatinine 2.2. ASSESSMENT: 1. Acute kidney injury associated with underlying COVID pneumonia and infection, currently stable hypotension. 2. Chronic kidney disease, stage 3, from diabetes and hypertension. Baseline creatinine 1.7 to 1.8. 3. Complicated urinary tract infection. 4. Hypotension. 5. Metabolic acidosis. 6. Type 2 diabetes. PLAN: Continue with midodrine. Repeat labs in a.m. Avoid nephrotoxic agents. Avoid hypotension. MMODL / IJN: [id number] /
--- NOTE | 2020-11-13 16:23 | PN ---
PROGRESS NOTE DATE OF SERVICE: 11/13/2020 This 45-year-old woman who was admitted with acute renal failure also had COVID-19 pneumonia. The patient also has diabetes mellitus, type 2. Multiple consultants are following the patient closely. The creatinine is 2.21 today, improved from 2.71. BUN is 70. The blood sugar is elevated to 392. Past medical history reviewed. REVIEW OF SYSTEMS: CARDIOVASCULAR SYSTEM: No angina, palpitations. RESPIRATORY SYSTEM: As mentioned earlier. GI: As mentioned earlier. : No dysuria or retention. NERVOUS SYSTEM: No numbness, weakness. CURRENT MEDICATIONS: Reviewed. They include Lipitor, Rocephin, Hexadrol, Lofibra, NovoLog scale and Levemir, Tradjenta. Medication doses are reviewed. PHYSICAL EXAMINATION: Patient alert and oriented x2. Pulse 72, blood pressure 93/58, respiration 16, temperature 97.8, pulse ox 98% on room air. HEENT: Conjunctivae normal. NECK: No jugular venous distention. CARDIOVASCULAR SYSTEM: S1, S2 muffled. RESPIRATORY SYSTEM: Breath sounds diminished at the bases. A few scattered rhonchi. ABDOMEN: Soft, non-tender. NERVOUS SYSTEM: No focal deficit. LABS: WBC 3.2, hemoglobin 13.2. Sodium 137, potassium 4.9. Creatinine is 2.21. UA: UTI. UA showed E coli which is polysensitive. ASSESSMENT: 1. Acute renal failure, prerenal azotemia, with acute tubular necrosis. 2. Acute COVID-19 pneumonia with acute hypoxic respiratory failure. 3. Diabetes mellitus, type 2. 4. Acute urinary tract infection with Escherichia coli. 5. Hypovolemic hyponatremia. 6. Non-anion gap as well as anion-gap acidosis. 7. Chronic kidney disease, stage 3 baseline. 8. Hyperlipidemia. 9. Hypertension. 10.Leukopenia. 11.Thrombocytopenia. 12.Hyponatremia. 13.Obesity with body mass index of 33.9. RECOMMENDATIONS AND DISCUSSION: In this 45-year-old woman who presented with multiple complex medical issues, we will monitor the patient closely, continue the current medications, continue with symptomatic treatment. Continue with the antibiotics. I would also recommend continuing the rest of the medications, including dexamethasone. I will increase the dose of Levemir and also add NovoLog 5 units t.i.d. with meals and continue to monitor. Home medication will be resumed. Prognosis is guarded because of multiple complex medical issues. We will stop the benazepril and hydrochlorothiazide combination for now and continue to monitor. Prognosis guarded. Further recommendations to follow. MMODL / IJN: [id number] /
--- NOTE | 2020-11-13 17:08 | P.PN ---
Subjective Progress Note Date: 11/13/20 Patient is a 45-year-old the female with development delay was brought in by mother because of generalized weakness. Found to have Covid 19. Patient did have a low-grade fever yesterday as patient doesn't have any significant syndromes unsure when her symptoms started. Patient denied any shortness of b reath, body aches. Denied any diarrhea. Patient is found to have acute renal failure with creatinine of 2.71 hyponatremic along with metabolic acidosis highly elevated BUN of 6.9 baseline creatinine is around 1.5. Patient was also hypotensive patient is on anti-hypertensive medications which include KEILY inhibitor. Patient is receiving IV fluids at this time nephrology was consulted. Patient did receive a monoclonal antibody infusion today morning. 11/12/2020 Unfortunately patient is requiring oxygen and desaturated without oxygen because of which I'm consulted pulmonary patient will be started on Decadron do not have any repeat basic metabolic profile available at this time. Patient's blood sugars are very high patient will be started on long-acting insulin tonight along with sliding scale with each meal. Patient received monoclonal antibody infusion yesterday 11/13/2020 Patient is seen and evaluated in follow-up this morning continues to be on 2 L of oxygen with intermittent room air 90-91% and slightly hypotensive this morning. Pulmonary consulted and pending. Sugars continue to be elevated and will add pre-meal insulin along with sliding scale and long-acting and continue to monitor. She is maintained on dexamethasone along with heparin subcu injections and zinc supplements and will continue at this time. Urine culture finalized showing E. coli and patient is maintained on IV ceftriaxone and will continue. No continue to hold antihypertensive medications. Review of systems: Patient is mostly nonverbal but does answer questions say she is fine for most of the questions. All inpatient medications were reviewed and appropriate changes in these medications as dictated in the interval history and assessment and plan. Objective - Vital Signs Vital signs: Vital Signs Temp 98.6 F 11/13/20 08:49 Pulse 56 L 11/13/20 08:49 Resp 16 11/13/20 08:49 BP 88/58 11/13/20 08:49 Pulse Ox 91 L 11/13/20 08:49 Intake & Output 11/12/20 11/13/20 11/13/20 18:59 06:59 18:59 Output Total 1500 800 Balance -1500 -800 Output: Urine 1500 800 Other: Voiding Method Toilet # Voids 1 - Exam GENERAL: The patient is alert and mostly nonverbal unable to assess his orientation, not in any acute distress. Well developed, well nourished. Does appear to have some developmental delay HEENT: Pupils are round and equally reacting to light. EOMI. No scleral icterus. No conjunctival pallor. Normocephalic, atraumatic. No pharyngeal erythema. No thyromegaly. CARDIOVASCULAR: S1 and S2 present. No murmurs, rubs, or gallops. PULMONARY: Chest is clear to auscultation, no wheezing or crackles. ABDOMEN: Soft, nontender, nondistended, normoactive bowel sounds. No palpable organomegaly. MUSCULOSKELETAL: No joint swelling or deformity. EXTREMITIES: No cyanosis, clubbing, or pedal edema. NEUROLOGICAL: Gross neurological examination did not reveal any focal deficits. SKIN: No rashes. - Labs CBC & Chem 7: 11/11/20 08:34 11/13/20 05:47 Labs: Abnormal Lab Results - Last 24 Hours (Table) 11/12/20 11/12/20 11/12/20 Range/Units 05:53 12:15 15:12 ABG pH 7.46 H (7.35-7.45) ABG pCO2 33 L (35-45) mmHg ABG pO2 67 L (83-108) mmHg ABG O2 Saturation 91.7 L (94-97) % Carbon Dioxide 14.9 L (21.6-31.8) mmol/L Anion Gap 17.10 H (4.00-12.00) mmol/L BUN 68.0 H (9.0-27.0) mg/dL Creatinine 2.7 H (0.6-1.5) mg/dL Est GFR (CKD-EPI)AfAm 24.0 L (60.0-200.0) Est GFR (CKD-EPI)NonAf 20.7 L (60.0-200.0) BUN/Creatinine Ratio 25.19 H (12.00-20.00) Ratio Glucose 379 H (70-110) mg/dL POC Glucose (mg/dL) 346 H (75-99) mg/dL Calcium 8.6 L (8.7-10.3) mg/dL 11/12/20 11/12/2011/13/21 Range/Units 17:55 19:46 05:47 ABG pH (7.35-7.45) ABG pCO2 (35-45) mmHg ABG pO2 (83-108) mmHg ABG O2 Saturation (94-97) % Carbon Dioxide 19 L (21.6-31.8) mmol/L Anion Gap (4.00-12.00) mmol/L BUN 70 H (9.0-27.0) mg/dL Creatinine 2.21 H (0.6-1.5) mg/dL Est GFR (CKD-EPI)AfAm (60.0-200.0) Est GFR (CKD-EPI)NonAf (60.0-200.0) BUN/Creatinine Ratio (12.00-20.00) Ratio Glucose 409 H (70-110) mg/dL POC Glucose (mg/dL) 329 H 452 H (75-99) mg/dL Calcium (8.7-10.3) mg/dL 11/13/20 Range/Units 07:03 ABG pH (7.35-7.45) ABG pCO2 (35-45) mmHg ABG pO2 (83-108) mmHg ABG O2 Saturation (94-97) % Carbon Dioxide (21.6-31.8) mmol/L Anion Gap (4.00-12.00) mmol/L BUN (9.0-27.0) mg/dL Creatinine (0.6-1.5) mg/dL Est GFR (CKD-EPI)AfAm (60.0-200.0) Est GFR (CKD-EPI)NonAf (60.0-200.0) BUN/Creatinine Ratio (12.00-20.00) Ratio Glucose (70-110) mg/dL POC Glucose (mg/dL) 463 H (75-99) mg/dL Calcium (8.7-10.3) mg/dL Microbiology - Last 24 Hours (Table) 11/11/20 08:38 Urine Culture - Final Urine,Voided Escherichia coli 11/11/20 12:04 Blood Culture - Preliminary Blood No Growth after 24 hours Assessment and Plan Assessment: -Acute renal failure: Prerenal azotemia, from dehydration intravascular depletion from a infection. Patient was started on IV fluids creatinine slightly improved at 2.21 today -Covid 19 pneumonia, acute hypoxia. Patient was started on Covid vitamins patient will will be started on systemic steroids at this time patient received monoclonal antibody infusion. -Type 2 diabetes mellitus uncontrolled elevated blood sugars continue with present regimen along with sliding scale titration and will add pre-meal insulin and have increased long acting insulin -Abnormal urine analysis possibly asymptomatic bacteriuria patient was started on IV antibiotics urine cultures finalized showing E. coli and patient has received 3 days will continue for 1 more day and discontinue on discharge -Hypovolemic hyponatremia: improved, sodium is 137 -Non-anion gap as well as anion gap metabolic acidosis secondary to acute renal failure patient may have had lactic acidosis. Gap is 12 -Chronic kidney disease stage III from diabetic nephropathy patient has trace protein in the urine. -Hyperlipidemia -Hypertension patient is presently hypotensive, continue to hold antihypertensives and will continue with beta eddie -DVT prophylaxis with subcutaneous heparin not a candidate for Lovenox because of renal failure
[2020-11-13 17:44] LABS: Glucose,Whole Blood 366 mg/dL (75-99)
[2020-11-13 20:28] LABS: Glucose,Whole Blood 437 mg/dL (75-99)
[2020-11-13 20:28] LABS: Glucose,Whole Blood 443 mg/dL (75-99)
[2020-11-13] MEDS ORDERED: INSULIN DETEMIR (LEVEMIR) 100 UNIT/ML SYR SQ SCH (21:00)
[2020-11-13] MEDS ORDERED: INSULIN DETEMIR (LEVEMIR) 100 UNIT/ML SYR SQ ONE (21:30)
[2020-11-13] MEDS: LATANOPROST 0.005% OPHTH DROPS 2.5 ML BTL LEFT EYE SCH (21:37)
[2020-11-14 07:29] LABS: Glucose,Whole Blood 278 mg/dL (75-99)
[2020-11-14] MEDS: FENOFIBRATE 160 MG TAB PO SCH (09:22)
[2020-11-14] MEDS: dexAMETHasone 2 MG TAB PO SCH (09:22)
[2020-11-14] MEDS: ZINC SULFATE 220 MG CAP PO SCH (09:22)
[2020-11-14] MEDS: ATORVASTATIN 20 MG TAB PO SCH (09:22)
[2020-11-14] MEDS: HEPARIN SODIUM,PORCINE/PF 5,000 UNIT/0.5 ML SYRINGE SQ SCH ×3 (09:23→15:29)
[2020-11-14] MEDS: INSULIN ASPART (NovoLOG) 100 UNIT/ML VIAL SQ SCH ×7 (09:23→20:41)
[2020-11-14] MEDS: MIDODRINE 5 MG TAB PO SCH ×3 (09:24→18:00)
[2020-11-14] MEDS: LINAGLIPTIN 5 MG TABLET PO SCH (09:24)
[2020-11-14] MEDS: ESCITALOPRAM 5 MG TAB PO SCH (09:24)
[2020-11-14] MEDS: REPAGLINIDE 1 MG TAB PO SCH ×3 (09:25→18:00)
[2020-11-14] MEDS: PIOGLITAZONE 45 MG TAB PO SCH (09:26)
[2020-11-14] MEDS: TRIAMCINOLONE 0.1% CREAM 80 GM TUBE TOPICAL SCH ×2 (09:26→21:18)
[2020-11-14] MEDS: CLOTRIMAZOLE 1% CREAM 30 GM TUBE TOPICAL SCH ×2 (09:26→21:18)
[2020-11-14 09:57] LABS: Basophils # (A) 0.01 X 10*3/uL (0.00-0.10); Basophils % (A) 0.3 %; Eosinophils # (A) 0.01 X 10*3/uL (0.04-0.35); Eosinophils % (A) 0.3 %; HCT 33.8 % (37.2-46.3); HGB 10.6 g/dL (12.0-15.0); Lymphocytes # (A) 0.54 X 10*3/uL (0.90-5.00); Lymphocytes % (A) 14.6 %; MCH 29.5 pg (27.0-32.0); MCHC 31.4 g/dL (32.0-37.0); MCV 94.2 fL (80.0-97.0); Mean Platelet Volume 11.7 fL (9.5-12.2); Monocytes # (A) 0.34 X 10*3/uL (0.20-1.00); Monocytes % (A) 9.2 %; Neutrophils # (A) 2.72 X 10*3/uL (1.80-7.70); Neutrophils % (A) 73.2 %; Platelet Count 134 X 10*3/uL (140-440); RBC 3.59 X 10*6/uL (4.10-5.20); RDW 13.1 % (11.5-14.5); WBC 3.71 X 10*3/uL (4.50-10.00)
[2020-11-14] MEDS: METOPROLOL TARTRATE 50 MG TAB PO SCH ×2 (10:54→20:58)
--- NOTE | 2020-11-14 11:07 | P.PN ---
Subjective Progress Note Date: 11/14/20 Principal diagnosis: Acute covid 19 pneumonia, and acute hypoxic respiratory failure This is a 45-year-old female with history of developmental delay. Lives with her parents, noted to be generally weak by her mother, and she fell fell at home which is unusual for the patient according to her mother. No self-inflicted injury. And according to her mother she has not been eating well, did not have any shortness of breath or diarrhea. She was noted to have low-grade fever in the ER. And according to her mother she was generally weak. Hence patient was tested for rotavirus, and she was noted to be positive for covid 19 chest x-ray showed multiple focal infiltrates bilaterally left more so than right. And it is consistent with Covid 19 pneumonia. Her O2 saturation was mostly in the 90s since admission except one O2 saturation was 89% on room air. Labs showed evid ence of leukopenia with WBC count of 3.2, thrombocytopenia with platelets of 101. And the relative lymphopenia. Patient was also noted to have possibly acute kidney injury with BUN 69 and creatinine 2.71. She was also noted to have a mild anion gap metabolic acidosis with anion gap of 17. Her sugars were high as high as 452. Negative ketones in the urine. Considering her abnormal chest x-ray, abnormal renal profile, abnormal labs and clinical symptoms, patient was admitted and this consult was initiated. The patient herself is a very poor historian. She does have significant developmental delay. Patient was reevaluated today on 11/14/2020, sitting in bed, very comfortable, on 2 L nasal cannula, and her O2 saturation earlier today was 86% on room air. Patient is not in any distress. Labs today showed a relatively normal CBC, no inflammatory markers were ordered for today. Objective - Vital Signs Vital signs: Vital Signs Temp 98.6 F 11/14/20 08:00 Pulse 60 11/14/20 08:00 Resp 18 11/14/20 10:23 BP 97/64 11/14/20 08:00 Pulse Ox 86 L 11/14/20 10:23 Intake & Output 11/13/20 11/14/20 11/14/20 18:59 06:59 18:59 Output Total 300 Balance -300 Output: Urine 300 Other: Voiding Method Toilet Toilet Toilet # Voids 1 - Exam Physical Exam: Revealed 45-year-old female obese, in no distress, presently on 2 L nasal cannula, however the patient keeps taking her cannula off. Head: Atraumatic, normocephalic. HEENT: PERRLA, EOMI, nonicteric, dry mucous membranes [Neck is supple.] [No neck masses.] [No thyromegaly.] [No JVD.] Chest: [Symmetrical chest expansion, minimal fine crackles at the bases especially at the left base. Cardiac Exam: Distant S1 and S2, no S3 gallop, no murmur. Abdomen: [Obese, Soft, nontender, no megaly, no rebound, no guarding, normal bowel sounds.] Extremities: [No clubbing, no edema, no cyanosis.] Neurological Exam: Follows simple instructions, but extremely slow and has mental developmental delay Psychiatric: Normal mood, pleasant affect, slow mentation. Skin: No rashes. - Labs CBC & Chem 7: 11/14/20 06:17 11/13/20 05:47 Labs: Abnormal Lab Results - Last 24 Hours (Table) 11/13/20 11/13/20 11/13/20 Range/Units 11:28 17:43 20:26 WBC (4.50-10.00) X 10*3/uL RBC (4.10-5.20) X 10*6/uL Hgb (12.0-15.0) g/dL Hct (37.2-46.3) % MCHC (32.0-37.0) g/dL Plt Count (140-440) X 10*3/uL Immature Gran # (0.00-0.04) X 10*3/uL Lymphocytes # (0.90-5.00) X 10*3/uL Eosinophils # (0.04-0.35) X 10*3/uL POC Glucose (mg/dL) 392 H 366 H 437 H (75-99) mg/dL 11/13/20 11/14/20 11/14/20 Range/Units 20:27 06:17 07:28 WBC 3.71 L (4.50-10.00) X 10*3/uL RBC 3.59 L (4.10-5.20) X 10*6/uL Hgb 10.6 L (12.0-15.0) g/dL Hct 33.8 L (37.2-46.3) % MCHC 31.4 L (32.0-37.0) g/dL Plt Count 134 L (140-440) X 10*3/uL Immature Gran # 0.09 H (0.00-0.04) X 10*3/uL Lymphocytes # 0.54 L (0.90-5.00) X 10*3/uL Eosinophils # 0.01 L (0.04-0.35) X 10*3/uL POC Glucose (mg/dL) 443 H 278 H (75-99) mg/dL Microbiology - Last 24 Hours (Table) 11/11/20 12:04 Blood Culture - Preliminary Blood No Growth after 48 hours 11/11/20 08:38 Urine Culture - Final Urine,Voided Escherichia coli Assessment and Plan Assessment: Impression: Acute covid 19 pneumonia, with hypoxia during her hospital course.. Acute on chronic kidney disease., likely secondary to hypotension along with the fact that the patient is on diuretics and on been as appropriate. Patient had a baseline creatinine of 1.7, her creatinine is improving today from 2.71 on admission and is 2.21 today. Acute E. coli urinary tract infection, patient remains on Rocephin which is appropriate. Acute anion gap metabolic acidosis secondary to acute kidney injury. History of type 2 diabetes. History of developmental delay. History of hypertension. Recommendation: Continue the Covid 19 cocktail, patient does not qualify for REM or TOCI or convalescent plasma, patient qualifies for Decadron now that her O2 level is down and requiring oxygen. She is already on Decadron. Continue to monitor oxygenation and supply oxygen if necessary. Continue Rocephin for the E. coli urinary tract infection Continue close monitoring and treatment of sugars. Continue to hold hydrochlorothiazide and denies appropriate. Discontinue sodium bicarb, already discontinued. Avoid nephrotoxic agents We'll continue to follow. Time with Patient: Less than 30
[2020-11-14 11:27] LABS: Glucose,Whole Blood 331 mg/dL (75-99)
[2020-11-14 14:20] LABS: African American GFR (CKD) 32.6 (60.0-200.0); Anion Gap 16.9 mmol/L (4.00-12.00); BUN/Creat Ratio 36.19 Ratio (12.00-20.00); Calcium 8.5 mg/dL (8.7-10.3); Carbon Dioxide 15.1 mmol/L (21.6-31.8); Non-African American GFR(CKD) 28.1 (60.0-200.0); Potassium 5.4 mmol/L (3.5-5.5)
--- NOTE | 2020-11-14 14:58 | P.PN ---
Subjective Progress Note Date: 11/14/20 Patient is a 45-year-old the female with development delay was brought in by mother because of generalized weakness. Found to have Covid 19. Patient did have a low-grade fever yesterday as patient doesn't have any significant syndromes unsure when her symptoms started. Patient denied any shortness of b reath, body aches. Denied any diarrhea. Patient is found to have acute renal failure with creatinine of 2.71 hyponatremic along with metabolic acidosis highly elevated BUN of 6.9 baseline creatinine is around 1.5. Patient was also hypotensive patient is on anti-hypertensive medications which include KEIYL inhibitor. Patient is receiving IV fluids at this time nephrology was consulted. Patient did receive a monoclonal antibody infusion today morning. 11/12/2020 Unfortunately patient is requiring oxygen and desaturated without oxygen because of which I'm consulted pulmonary patient will be started on Decadron do not have any repeat basic metabolic profile available at this time. Patient's blood sugars are very high patient will be started on long-acting insulin tonight along with sliding scale with each meal. Patient received monoclonal antibody infusion yesterday 11/13/2020 Patient is seen and evaluated in follow-up this morning continues to be on 2 L of oxygen with intermittent room air 90-91% and slightly hypotensive this morning. Pulmonary consulted and pending. Sugars continue to be elevated and will add pre-meal insulin along with sliding scale and long-acting and continue to monitor. She is maintained on dexamethasone along with heparin subcu injections and zinc supplements and will continue at this time. Urine culture finalized showing E. coli and patient is maintained on IV ceftriaxone and will continue. Will continue to hold antihypertensive medications. Review of systems: Patient is mostly nonverbal but does answer questions say she is fine for most of the questions. All inpatient medications were reviewed and appropriate changes in these medications as dictated in the interval history and assessment and plan. Objective - Vital Signs Vital signs: Vital Signs Temp 98.6 F 11/14/20 08:00 Pulse 60 11/14/20 08:00 Resp 18 11/14/20 10:23 BP 97/64 11/14/20 08:00 Pulse Ox 86 L 11/14/20 10:23 Intake & Output 11/13/20 11/14/20 11/14/20 18:59 06:59 18:59 Output Total 300 Balance -300 Output: Urine 300 Other: Voiding Method Toilet Toilet Toilet # Voids 1 - Exam GENERAL: The patient is alert and mostly nonverbal unable to assess her orientation, not in any acute distress. Well developed, well nourished. Does appear to have some developmental delay HEENT: Pupils are round and equally reacting to light. EOMI. No scleral icterus. No conjunctival pallor. Normocephalic, atraumatic. No pharyngeal erythema. No thyromegaly. CARDIOVASCULAR: S1 and S2 present. No murmurs, rubs, or gallops. PULMONARY: Chest is clear to auscultation, no wheezing or crackles. ABDOMEN: Soft, nontender, nondistended, normoactive bowel sounds. No palpable organomegaly. MUSCULOSKELETAL: No joint swelling or deformity. EXTREMITIES: No cyanosis, clubbing, or pedal edema. NEUROLOGICAL: Gross neurological examination did not reveal any focal deficits. SKIN: No rashes. - Labs CBC & Chem 7: 11/14/20 06:17 11/14/20 06:17 Labs: Abnormal Lab Results - Last 24 Hours (Table) 11/13/20 11/13/20 11/13/20 Range/Units 17:43 20:26 20:27 WBC (4.50-10.00) X 10*3/uL RBC (4.10-5.20) X 10*6/uL Hgb (12.0-15.0) g/dL Hct (37.2-46.3) % MCHC (32.0-37.0) g/dL Plt Count (140-440) X 10*3/uL Immature Gran # (0.00-0.04) X 10*3/uL Lymphocytes # (0.90-5.00) X 10*3/uL Eosinophils # (0.04-0.35) X 10*3/uL POC Glucose (mg/dL) 366 H 437 H 443 H (75-99) mg/dL 11/14/20 11/14/20 11/14/20 Range/Units 06:17 07:28 11:25 WBC 3.71 L (4.50-10.00) X 10*3/uL RBC 3.59 L (4.10-5.20) X 10*6/uL Hgb 10.6 L (12.0-15.0) g/dL Hct 33.8 L (37.2-46.3) % MCHC 31.4 L (32.0-37.0) g/dL Plt Count 134 L (140-440) X 10*3/uL Immature Gran # 0.09 H (0.00-0.04) X 10*3/uL Lymphocytes # 0.54 L (0.90-5.00) X 10*3/uL Eosinophils # 0.01 L (0.04-0.35) X 10*3/uL POC Glucose (mg/dL) 278 H 331 H (75-99) mg/dL Microbiology - Last 24 Hours (Table) 11/11/20 12:04 Blood Culture - Preliminary Blood No Growth after 48 hours Assessment and Plan Assessment: -Acute renal failure: Prerenal azotemia, from dehydration intravascular depletion from a infection. Patient was started on IV fluids creatinine slightly improved at 2.1 today, nephrology following -Covid 19 pneumonia, acute hypoxia. Patient was started on Covid vitamins patient will will be started on systemic steroids at this time patient received monoclonal antibody infusion. Pulmonary following -Type 2 diabetes mellitus uncontrolled elevated blood sugars, patient is maintained on sliding scale along with pre-meal and long-acting which have been increased and will continue to monitor and titrate accordingly -Abnormal urine analysis possibly asymptomatic bacteriuria patient was started on IV antibiotics urine cultures finalized showing E. coli and patient has received adequate dosing of antibiotics and will discontinue -Hypovolemic hyponatremia: improved, sodium is 138 -Non-anion gap as well as anion gap metabolic acidosis secondary to acute renal failure patient may have had lactic acidosis. -Chronic kidney disease stage III from diabetic nephropathy patient has trace pr otein in the urine. -Hyperlipidemia -Hypertension patient is presently hypotensive, continue to hold antihypertensives and will continue with beta eddie -DVT prophylaxis with subcutaneous heparin not a candidate for Lovenox because of renal failure Plan: Continue with current medications. Patient has received adequate dosing of IV antibiotics and will discontinue. Blood sugars continue to be uncontrolled and increased pre-meal along with long-acting and will continue to monitor. Kidney functions continue to be elevated at 2.1 with a BUN of 76 and current anion gap is 16.9, potassium is 5.4, and sodium is 138. Will discuss with nursing staff about continuing gentle IV fluids as patient needs them. Patient continues to be weak and have been evaluated by PT/OT therapy recommending subacute rehab and family is agreeable. Social work consulted and working on accepting facilities.
[2020-11-14 16:08] LABS: African American GFR (CKD) 41 (>60 ml/min/1.73 sqM); Anion Gap 12 mmol/L; Blood Urea Nitrogen 72 mg/dL (7-17); Calcium 8.8 mg/dL (8.4-10.2); Carbon Dioxide 17 mmol/L (22-30); Chloride 107 mmol/L (98-107); Glucose 338 mg/dL (74-99); Non-African American GFR(CKD) 36 (>60 ml/min/1.73 sqM); Potassium 5.7 mmol/L (3.5-5.1); Sodium 136 mmol/L (137-145)
[2020-11-14] MEDS ORDERED: FUROSEMIDE 10 MG/ML 2 ML VIAL IV ONE (16:20)
[2020-11-14] MEDS ORDERED: INSULIN REGULAR 100 UNIT/ML VIAL (IV) IV ONE (16:20)
[2020-11-14] MEDS ORDERED: SODIUM POLYSTYRENE SULFONATE 15 GM/60 ML BOTTLE PO STA (16:32)
[2020-11-14 17:11] LABS: Glucose,Whole Blood 381 mg/dL (75-99)
[2020-11-14 20:21] LABS: Glucose,Whole Blood 96 mg/dL (75-99)
[2020-11-14] MEDS: SODIUM CHLORIDE 0.9% 1,000 ML IV SCH (20:58)
[2020-11-14] MEDS ORDERED: INSULIN DETEMIR (LEVEMIR) 100 UNIT/ML SYR SQ SCH (21:00)
[2020-11-14] MEDS: LATANOPROST 0.005% OPHTH DROPS 2.5 ML BTL LEFT EYE SCH (21:18)
--- NOTE | 2020-11-14 22:38 | PN ---
PROGRESS NOTE Patient is seen for followup for acute kidney injury. She has underlying COVID-19 pneumonia. Patient is comfortable. She denies any significant complaints. Her renal function is improving, although potassium is staying slightly on the higher side. Today the vital signs were reviewed. PHYSICAL EXAMINATION: Blood pressure is 105/67, heart rate 72 per minute. No evidence of edema in lower extremities. Detailed exam is not performed due to COVID-19 pneumonia. LEAD SLOT TECHNICIAN exam grossly intact. LABS: Hemoglobin 10.6 from 11/14/2020. Sodium 136, potassium 5.7, CO2 17, BUN 72, creatinine 1.74. Blood sugar is elevated at 331 and 338 mg/dL. ASSESSMENT: 1. Acute kidney injury associated with underlying COVID-19 infection, somewhat improved. No nephrotoxic agents on board. Blood pressure had been low. Patient is maintained on midodrine, which was increased yesterday. She is tolerating oral intake. 2. Hyperkalemia associated with acute kidney injury, metabolic acidosis and high blood sugars. I will give her IV insulin and we will repeat labs in a.m. Maintain low- potassium diet. 3. COVID-19 pneumonia. PLAN: Lasix 20 mg IV x1. Treat hyperglycemia. I will give a dose of IV insulin and repeat labs in a.m. Continue with the midodrine. MMODL / IJN: [id number] /
[2020-11-15] MEDS: HEPARIN SODIUM,PORCINE/PF 5,000 UNIT/0.5 ML SYRINGE SQ SCH ×3 (00:03→16:34)
[2020-11-15 07:17] LABS: Glucose,Whole Blood 316 mg/dL (75-99)
[2020-11-15] MEDS: METOPROLOL TARTRATE 50 MG TAB PO SCH ×2 (08:14→20:52)
[2020-11-15] MEDS: LINAGLIPTIN 5 MG TABLET PO SCH (08:14)
[2020-11-15] MEDS: MIDODRINE 5 MG TAB PO SCH ×3 (08:14→17:58)
[2020-11-15] MEDS: FENOFIBRATE 160 MG TAB PO SCH (08:15)
[2020-11-15] MEDS: REPAGLINIDE 1 MG TAB PO SCH ×3 (08:15→17:58)
[2020-11-15] MEDS: INSULIN ASPART (NovoLOG) 100 UNIT/ML VIAL SQ SCH ×7 (08:15→20:51)
[2020-11-15] MEDS: ESCITALOPRAM 5 MG TAB PO SCH (08:15)
[2020-11-15] MEDS: PIOGLITAZONE 45 MG TAB PO SCH (08:15)
[2020-11-15] MEDS: dexAMETHasone 2 MG TAB PO SCH (08:15)
[2020-11-15] MEDS: ATORVASTATIN 20 MG TAB PO SCH (08:16)
[2020-11-15] MEDS: ZINC SULFATE 220 MG CAP PO SCH (08:16)
[2020-11-15] MEDS: CLOTRIMAZOLE 1% CREAM 30 GM TUBE TOPICAL SCH ×2 (08:17→20:52)
[2020-11-15] MEDS: TRIAMCINOLONE 0.1% CREAM 80 GM TUBE TOPICAL SCH ×2 (08:17→20:52)
--- NOTE | 2020-11-15 09:50 | P.PN ---
Subjective Progress Note Date: 11/15/20 Principal diagnosis: Acute covid 19 pneumonia, and acute hypoxic respiratory failure This is a 45-year-old female with history of developmental delay. Lives with her parents, noted to be generally weak by her mother, and she fell fell at home which is unusual for the patient according to her mother. No self-inflicted injury. And according to her mother she has not been eating well, did not have any shortness of breath or diarrhea. She was noted to have low-grade fever in the ER. And according to her mother she was generally weak. Hence patient was tested for rotavirus, and she was noted to be positive for covid 19 chest x-ray showed multiple focal infiltrates bilaterally left more so than right. And it is consistent with Covid 19 pneumonia. Her O2 saturation was mostly in the 90s since admission except one O2 saturation was 89% on room air. Labs showed evid ence of leukopenia with WBC count of 3.2, thrombocytopenia with platelets of 101. And the relative lymphopenia. Patient was also noted to have possibly acute kidney injury with BUN 69 and creatinine 2.71. She was also noted to have a mild anion gap metabolic acidosis with anion gap of 17. Her sugars were high as high as 452. Negative ketones in the urine. Considering her abnormal chest x-ray, abnormal renal profile, abnormal labs and clinical symptoms, patient was admitted and this consult was initiated. The patient herself is a very poor historian. She does have significant developmental delay. Patient was reevaluated today on 11/14/2020, sitting in bed, very comfortable, on 2 L nasal cannula, and her O2 saturation earlier today was 86% on room air. Patient is not in any distress. Labs today showed a relatively normal CBC, no inflammatory markers were ordered for today. Reevaluated today on 11/15/2020, patient remains on 5 L nasal cannula, O2 saturation is in the low 90s. She does not seem to be in any distress, patient seems to be very pleasant, but she is not a great historian considering her developmental delay. CBC is relatively normal. Her renal functioning is impr oving and her potassium is 5.7 creatinine is down to 1.74. Sugars are running high at 338. This is being addressed by the admitting physician. Objective - Vital Signs Vital signs: Vital Signs Temp 99.0 F 11/15/20 08:00 Pulse 80 04/07/21 08:00 Resp 16 11/15/20 08:00 BP 100/66 11/15/20 08:00 Pulse Ox 91 L 11/15/20 08:00 Intake & Output 11/14/20 11/15/20 11/15/20 18:59 06:59 18:59 Output Total 1500 700 Balance -1500 -700 Output: Urine 1500 700 Other: Voiding Method Toilet # Bowel Movements 1 - Exam Physical Exam: Revealed 45-year-old female obese, in no distress, presently on 5 L nasal cannula. Head: Atraumatic, normocephalic. HEENT: PERRLA, EOMI, nonicteric, dry mucous membranes [Neck is supple.] [No neck masses.] [No thyromegaly.] [No JVD.] Chest: [Symmetrical chest expansion, minimal fine crackles at the bases Cardiac Exam: Distant S1 and S2, no S3 gallop, no murmur. Abdomen: [Obese, Soft, nontender, no megaly, no rebound, no guarding, normal bowel sounds.] Extremities: [No clubbing, no edema, no cyanosis.] Neurological Exam: Follows simple instructions, but extremely slow and has mental developmental delay Psychiatric: Normal mood, pleasant affect, slow mentation. Skin: No rashes. - Labs CBC & Chem 7: 11/14/20 06:17 11/14/20 14:41 Labs: Abnormal Lab Results - Last 24 Hours (Table) 11/14/20 11/14/20 11/14/20 Range/Units 06:17 06:17 11:25 WBC 3.71 L (4.50-10.00) X 10*3/uL RBC 3.59 L (4.10-5.20) X 10*6/uL Hgb 10.6 L (12.0-15.0) g/dL Hct 33.8 L (37.2-46.3) % MCHC 31.4 L (32.0-37.0) g/dL Plt Count 134 L (140-440) X 10*3/uL Immature Gran # 0.09 H (0.00-0.04) X 10*3/uL Lymphocytes # 0.54 L (0.90-5.00) X 10*3/uL Eosinophils # 0.01 L (0.04-0.35) X 10*3/uL Sodium (137-145) mmol/L Potassium (3.5-5.1) mmol/L Carbon Dioxide 15.1 L (21.6-31.8) mmol/L Anion Gap 16.90 H (4.00-12.00) mmol/L BUN 76.0 H (9.0-27.0) mg/dL Creatinine 2.1 H (0.6-1.5) mg/dL Est GFR (CKD-EPI)AfAm 32.6 L (60.0-200.0) Est GFR (CKD-EPI)NonAf 28.1 L (60.0-200.0) BUN/Creatinine Ratio 36.19 H (12.00-20.00) Ratio Glucose 292 H (70-110) mg/dL POC Glucose (mg/dL) 331 H (75-99) mg/dL Calcium 8.5 L (8.7-10.3) mg/dL 11/14/20 11/14/20 11/15/20 Range/Units 14:41 17:10 07:15 WBC (4.50-10.00) X 10*3/uL RBC (4.10-5.20) X 10*6/uL Hgb (12.0-15.0) g/dL Hct (37.2-46.3) % MCHC (32.0-37.0) g/dL Plt Count (140-440) X 10*3/uL Immature Gran # (0.00-0.04) X 10*3/uL Lymphocytes # (0.90-5.00) X 10*3/uL Eosinophils # (0.04-0.35) X 10*3/uL Sodium 136 L (137-145) mmol/L Potassium 5.7 H (3.5-5.1) mmol/L Carbon Dioxide 17 L (21.6-31.8) mmol/L Anion Gap (4.00-12.00) mmol/L BUN 72 H (9.0-27.0) mg/dL Creatinine 1.74 H (0.6-1.5) mg/dL Est GFR (CKD-EPI)AfAm (60.0-200.0) Est GFR (CKD-EPI)NonAf (60.0-200.0) BUN/Creatinine Ratio (12.00-20.00) Ratio Glucose 338 H (70-110) mg/dL POC Glucose (mg/dL) 381 H 316 H (75-99) mg/dL Calcium (8.7-10.3) mg/dL Microbiology - Last 24 Hours (Table) 11/11/20 12:04 Blood Culture - Preliminary Blood No Growth after 72 hours Assessment and Plan Assessment: Impression: Acute covid 19 pneumonia, with hypoxia during her hospital course.. Acute on chronic kidney disease., likely secondary to hypotension along with the fact that the patient is on diuretics and on been as appropriate. Improving and being followed by nephrology. Acute E. coli urinary tract infection, on Rocephin Acute anion gap metabolic acidosis secondary to acute kidney injury. Resolved History of type 2 diabetes. History of developmental delay. History of hypertension. Recommendation: Continue the Covid 19 cocktail, patient does not qualify for REM or TOCI or convalescent plasma, patient qualifies for Decadron now that her O2 level is down and requiring oxygen. She is already on Decadron. Continue to monitor oxygenation and supply oxygen if necessary. Continue Decadron. Continue insulin. Kayexalate for hyperkalemia. Continue Rocephin for the E. coli urinary tract infection Continue close monitoring and treatment of sugars. Continue to hold hydrochlorothiazide Avoid nephrotoxic agents We'll continue to follow. Time with Patient: Less than 30
[2020-11-15 12:00] LABS: Glucose,Whole Blood 448 mg/dL (75-99)
[2020-11-15 13:35] LABS: African American GFR (CKD) 47 (>60 ml/min/1.73 sqM); Anion Gap 8 mmol/L; Blood Urea Nitrogen 67 mg/dL (7-17); Calcium 8.2 mg/dL (8.4-10.2); Carbon Dioxide 20 mmol/L (22-30); Chloride 102 mmol/L (98-107); Glucose 414 mg/dL (74-99); Non-African American GFR(CKD) 41 (>60 ml/min/1.73 sqM); Sodium 130 mmol/L (137-145)
[2020-11-15 13:48] LABS: Potassium 5.7 mmol/L (3.5-5.1)
[2020-11-15] MEDS ORDERED: INSULIN REGULAR 100 UNIT/ML VIAL (IV) IV ONE (16:19)
[2020-11-15] MEDS ORDERED: DEXTROSE 50% SYRINGE 50 ML IVP STA (16:19)
--- NOTE | 2020-11-15 16:27 | P.PN ---
Subjective Progress Note Date: 11/15/20 Patient is a 45-year-old the female with development delay was brought in by mother because of generalized weakness. Found to have Covid 19. Patient did have a low-grade fever yesterday as patient doesn't have any significant syndromes unsure when her symptoms started. Patient denied any shortness of b reath, body aches. Denied any diarrhea. Patient is found to have acute renal failure with creatinine of 2.71 hyponatremic along with metabolic acidosis highly elevated BUN of 6.9 baseline creatinine is around 1.5. Patient was also hypotensive patient is on anti-hypertensive medications which include KEILY inhibitor. Patient is receiving IV fluids at this time nephrology was consulted. Patient did receive a monoclonal antibody infusion today morning. 11/12/2020 Unfortunately patient is requiring oxygen and desaturated without oxygen because of which I'm consulted pulmonary patient will be started on Decadron do not have any repeat basic metabolic profile available at this time. Patient's blood sugars are very high patient will be started on long-acting insulin tonight along with sliding scale with each meal. Patient received monoclonal antibody infusion yesterday 11/13/2020 Patient is seen and evaluated in follow-up this morning continues to be on 2 L of oxygen with intermittent room air 90-91% and slightly hypotensive this morning. Pulmonary consulted and pending. Sugars continue to be elevated and will add pre-meal insulin along with sliding scale and long-acting and continue to monitor. She is maintained on dexamethasone along with heparin subcu injections and zinc supplements and will continue at this time. Urine culture finalized showing E. coli and patient is maintained on IV ceftriaxone and will continue. Will continue to hold antihypertensive medications. 11/14/2020 She is seen and evaluated today and continues to remove her oxygen although is now maintained on 4-5 L nasal cannula and maintaining 90-91% oxygen saturation. Patient's blood sugars continue to be elevated and have increased pre-meal and long-acting and will continue with sliding scale as well. Patient continues on dexamethasone along with heparin subcutaneous and zinc supplements. BMP labs finally resulted after 2 PM showing potassium again elevated at 5.7 and will give an amp of dextrose along with 10 units of insulin IV and repeat labs. Creatinine is improving at 1.55 and nephrology is following. Patient with intermittent low-grade fevers this morning of 99.8 and 99.0. Patient is currently afebrile this afternoon. Social work also following as patient will be going to rehab for continued PT/OT therapy once stabilized and discharged. Review of systems: Patient is mostly nonverbal but does answer questions say she is fine for most of the questions. All inpatient medications were reviewed and appropriate changes in these medications as dictated in the interval history and assessment and plan. Objective - Vital Signs Vital signs: Vital Signs Temp 99.0 F 11/15/20 08:00 Pulse 80 11/15/20 08:00 Resp 16 11/15/20 08:00 BP 100/66 11/15/20 08:00 Pulse Ox 91 L 11/15/20 08:00 Intake & Output 11/14/20 11/15/20 11/15/20 18:59 06:59 18:59 Output Total 1500 700 Balance -1500 -700 Output: Urine 1500 700 Other: Voiding Method Toilet # Bowel Movements 1 - Exam GENERAL: The patient is alert and mostly nonverbal unable to assess her orientation, not in any acute distress. Well developed, well nourished. Does appear to have some developmental delay HEENT: Pupils are round and equally reacting to light. EOMI. No scleral icterus. No conjunctival pallor. Normocephalic, atraumatic. No pharyngeal erythema. No thyromegaly. CARDIOVASCULAR: S1 and S2 present. No murmurs, rubs, or gallops. PULMONARY: Diminished breath sounds bilaterally with some scattered rhonchi noted. ABDOMEN: Soft, nontender, nondistended, normoactive bowel sounds. No palpable organomegaly. MUSCULOSKELETAL: No joint swelling or deformity. EXTREMITIES: No cyanosis, clubbing, or pedal edema. NEUROLOGICAL: Gross neurological examination did not reveal any focal deficits. SKIN: No rashes. - Labs CBC & Chem 7: 11/14/20 06:17 11/15/20 12:44 Labs: Abnormal Lab Results - Last 24 Hours (Table) 11/14/20 11/14/20 11/14/20 Range/Units 06:17 06:17 11:25 WBC 3.71 L (4.50-10.00) X 10*3/uL RBC 3.59 L (4.10-5.20) X 10*6/uL Hgb 10.6 L (12.0-15.0) g/dL Hct 33.8 L (37.2-46.3) % MCHC 31.4 L (32.0-37.0) g/dL Plt Count 134 L (140-440) X 10*3/uL Immature Gran # 0.09 H (0.00-0.04) X 10*3/uL Lymphocytes # 0.54 L (0.90-5.00) X 10*3/uL Eosinophils # 0.01 L (0.04-0.35) X 10*3/uL Sodium (137-145) mmol/L Potassium (3.5-5.1) mmol/L Carbon Dioxide 15.1 L (21.6-31.8) mmol/L Anion Gap 16.90 H (4.00-12.00) mmol/L BUN 76.0 H (9.0-27.0) mg/dL Creatinine 2.1 H (0.6-1.5) mg/dL Est GFR (CKD-EPI)AfAm 32.6 L (60.0-200.0) Est GFR (CKD-EPI)NonAf 28.1 L (60.0-200.0) BUN/Creatinine Ratio 36.19 H (12.00-20.00) Ratio Glucose 292 H (70-110) mg/dL POC Glucose (mg/dL) 331 H (75-99) mg/dL Calcium 8.5 L (8.7-10.3) mg/dL 11/14/20 11/14/20 11/15/20 Range/Units 14:41 17:10 07:15 WBC (4.50-10.00) X 10*3/uL RBC (4.10-5.20) X 10*6/uL Hgb (12.0-15.0) g/dL Hct (37.2-46.3) % MCHC (32.0-37.0) g/dL Plt Count (140-440) X 10*3/uL Immature Gran # (0.00-0.04) X 10*3/uL Lymphocytes # (0.90-5.00) X 10*3/uL Eosinophils # (0.04-0.35) X 10*3/uL Sodium 136 L (137-145) mmol/L Potassium 5.7 H (3.5-5.1) mmol/L Carbon Dioxide 17 L (21.6-31.8) mmol/L Anion Gap (4.00-12.00) mmol/L BUN 72 H (9.0-27.0) mg/dL Creatinine 1.74 H (0.6-1.5) mg/dL Est GFR (CKD-EPI)AfAm (60.0-200.0) Est GFR (CKD-EPI)NonAf (60.0-200.0) BUN/Creatinine Ratio (12.00-20.00) Ratio Glucose 338 H (70-110) mg/dL POC Glucose (mg/dL) 381 H 316 H (75-99) mg/dL Calcium (8.7-10.3) mg/dL Microbiology - Last 24 Hours (Table) 11/11/20 12:04 Blood Culture - Preliminary Blood No Growth after 72 hours Assessment and Plan Assessment: -Acute renal failure: Prerenal azotemia, from dehydration intravascular depletion from a infection. Patient was started on IV fluids creatinine slightly improved at 1.55 today, nephrology following -Hyperkalemia, potassium is 5.7 and will give an amp of dextrose along with regular insulin IV and repeat labs. -Covid 19 pneumonia, acute hypoxia. Patient was started on Covid vitamins patient will will be started on systemic steroids at this time patient received monoclonal antibody infusion. Pulmonary following -Type 2 diabetes mellitus uncontrolled elevated blood sugars, patient is maintained on sliding scale along with pre-meal and long-acting which have been increased and will continue to monitor and titrate accordingly -Abnormal urine analysis possibly asymptomatic bacteriuria patient was started on IV antibiotics urine cultures finalized showing E. coli and patient has received adequate dosing of antibiotics and will discontinue -Hypovolemic hyponatremia -Non-anion gap as well as anion gap metabolic acidosis secondary to acute renal failure patient may have had lactic acidosis. -Chronic kidney disease stage III from diabetic nephropathy patient has trace protein in the urine. -Hyperlipidemia -Hypertension patient is presently hypotensive, continue to hold antihypertensives and will continue with beta eddie -DVT prophylaxis with subcutaneous heparin not a candidate for Lovenox because of renal failure Plan: Continue with current medications. Patient has received adequate dosing of IV antibiotics and have discontinued. Blood sugars continue to be uncontrolled and increased pre-meal along with long-acting and will continue to monitor. Kidney functions continue to be elevated although improving with gentle IV hydration and is at 1.55 with a BUN of 67. Continue gentle IV hydration. Potassium once again elevated at 5.7 and will correct and repeat a.m. labs. Patient continues to be weak and have been evaluated by PT/OT therapy recommending subacute rehab and family is agreeable. Social work following and [facility] has accepted the patient once stabilized and discharged. Possible discharge in 24-48 hours..
[2020-11-15 17:28] LABS: Glucose,Whole Blood 430 mg/dL (75-99)
--- NOTE | 2020-11-15 20:19 | PN ---
PROGRESS NOTE Patient is seen for followup for acute kidney injury. Her renal function continues to improve with creatinine down to 1.5 today from 1.7 yesterday. No other significant complaints. PHYSICAL EXAMINATION: Blood pressure was 100/66, heart rate 80 per minute, patient is afebrile. No evidence of edema noted. Rest of exam not performed. MANAGER CULTURE exam grossly intact. The patient is answering simple questions. LAB: Show sodium 130, potassium 5.7, chloride 102, CO2 is 20, BUN 67, serum creatinine 1.5 mg/dL. ASSESSMENT: 1. Acute kidney injury, acute tubular necrosis, currently improving. 2. Escherichia coli urinary tract infection. 3. COVID-19 pneumonia. 4. Hyperkalemia associated with acute kidney injury and elevated blood sugars. Serum potassium staying at about 5.7 mEq/L. The patient is not on a low-potassium diet. Blood sugars remain elevated with last reading at 448 this morning. Definitely the hyperglycemia is contributing to the hyperkalemia as well. PLAN: Discontinue IV fluids, encourage increased oral intake, control blood sugars as this will help with the hyperkalemia as well. Change to low-potassium diet. MMODL / IJN: [id number] /
[2020-11-15 20:25] LABS: Glucose,Whole Blood 377 mg/dL (75-99)
[2020-11-15] MEDS: LATANOPROST 0.005% OPHTH DROPS 2.5 ML BTL LEFT EYE SCH (20:52)
[2020-11-15] MEDS ORDERED: INSULIN DETEMIR (LEVEMIR) 100 UNIT/ML SYR SQ SCH (21:00)
[2020-11-16] MEDS: HEPARIN SODIUM,PORCINE/PF 5,000 UNIT/0.5 ML SYRINGE SQ SCH ×4 (00:21→22:44)
[2020-11-16 06:18] LABS: African American GFR (CKD) 45 (>60 ml/min/1.73 sqM); Anion Gap 5 mmol/L; Blood Urea Nitrogen 60 mg/dL (7-17); Calcium 8.6 mg/dL (8.4-10.2); Carbon Dioxide 25 mmol/L (22-30); Chloride 109 mmol/L (98-107); Glucose 184 mg/dL (74-99); Non-African American GFR(CKD) 39 (>60 ml/min/1.73 sqM); Potassium 4.9 mmol/L (3.5-5.1); Sodium 139 mmol/L (137-145)
[2020-11-16 07:47] LABS: Glucose,Whole Blood 224 mg/dL (75-99)
[2020-11-16] MEDS: PIOGLITAZONE 45 MG TAB PO SCH (08:33)
[2020-11-16] MEDS: MIDODRINE 5 MG TAB PO SCH ×3 (08:33→17:20)
[2020-11-16] MEDS: INSULIN ASPART (NovoLOG) 100 UNIT/ML VIAL SQ SCH ×7 (08:34→20:28)
[2020-11-16] MEDS: LINAGLIPTIN 5 MG TABLET PO SCH (08:34)
[2020-11-16] MEDS: ATORVASTATIN 20 MG TAB PO SCH (08:35)
[2020-11-16] MEDS: ESCITALOPRAM 5 MG TAB PO SCH (08:35)
[2020-11-16] MEDS: METOPROLOL TARTRATE 50 MG TAB PO SCH ×2 (08:35→20:29)
[2020-11-16] MEDS: dexAMETHasone 2 MG TAB PO SCH (08:35)
[2020-11-16] MEDS: REPAGLINIDE 1 MG TAB PO SCH ×3 (08:35→17:20)
[2020-11-16] MEDS: FENOFIBRATE 160 MG TAB PO SCH (08:35)
[2020-11-16] MEDS: TRIAMCINOLONE 0.1% CREAM 80 GM TUBE TOPICAL SCH ×2 (08:36→20:29)
[2020-11-16] MEDS: CLOTRIMAZOLE 1% CREAM 30 GM TUBE TOPICAL SCH ×2 (08:36→20:28)
[2020-11-16] MEDS: ZINC SULFATE 220 MG CAP PO SCH (08:36)
--- NOTE | 2020-11-16 09:15 | XR ---
EXAMINATION TYPE: XR chest 1V portable DATE OF EXAM: 11/16/2020 COMPARISON: 11/11/2020 HISTORY: Covid pneumonia TECHNIQUE: Single frontal view of the chest is obtained. FINDINGS: Worsening airspace infiltrates throughout both lung bhatti. The cardiac silhouette size is within nor mal limits. The osseous structures are intact. IMPRESSION: 1. Worsening airspace infiltrates throughout both lung bhatti.
[2020-11-16] MEDS ORDERED: FUROSEMIDE 10 MG/ML 4 ML VIAL IV STA (10:42)
--- NOTE | 2020-11-16 10:46 | P.PN ---
Subjective Progress Note Date: 11/16/20 Principal diagnosis: Acute covid 19 pneumonia, and acute hypoxic respiratory failure This is a 45-year-old female with history of developmental delay. Lives with her parents, noted to be generally weak by her mother, and she fell fell at home which is unusual for the patient according to her mother. No self-inflicted injury. And according to her mother she has not been eating well, did not have any shortness of breath or diarrhea. She was noted to have low-grade fever in the ER. And according to her mother she was generally weak. Hence patient was tested for rotavirus, and she was noted to be positive for covid 19 chest x-ray showed multiple focal infiltrates bilaterally left more so than right. And it is consistent with Covid 19 pneumonia. Her O2 saturation was mostly in the 90s since admission except one O2 saturation was 89% on room air. Labs showed evid ence of leukopenia with WBC count of 3.2, thrombocytopenia with platelets of 101. And the relative lymphopenia. Patient was also noted to have possibly acute kidney injury with BUN 69 and creatinine 2.71. She was also noted to have a mild anion gap metabolic acidosis with anion gap of 17. Her sugars were high as high as 452. Negative ketones in the urine. Considering her abnormal chest x-ray, abnormal renal profile, abnormal labs and clinical symptoms, patient was admitted and this consult was initiated. The patient herself is a very poor historian. She does have significant developmental delay. Patient was reevaluated today on 11/14/2020, sitting in bed, very comfortable, on 2 L nasal cannula, and her O2 saturation earlier today was 86% on room air. Patient is not in any distress. Labs today showed a relatively normal CBC, no inflammatory markers were ordered for today. Reevaluated today on 11/15/2020, patient remains on 5 L nasal cannula, O2 saturation is in the low 90s. She does not seem to be in any distress, patient seems to be very pleasant, but she is not a great historian considering her developmental delay. CBC is relatively normal. Her renal functioning is impr oving and her potassium is 5.7 creatinine is down to 1.74. Sugars are running high at 338. This is being addressed by the admitting physician. Reevaluated today on 11/16/2020, patient is now on a higher oxygen flow the patient was raised up to 15 L high flow nasal cannula. Surprisingly the patient is in no distress whatsoever, sitting in bed, eating, very comfortable, and asymptomatic. Labs today were basically unremarkable, BUN remains elevated at 60 creatinine 1.6, admission creatinine was 2.71 chest x-ray is showing diffuse bilateral interstitial edema or infiltrates, I will recommend a dose of Lasix to be given as this may be a component of fluid overload or none diastolic congestive heart failure. In the meantime I will recommend an echocardiogram and order BNP level. And the possibility of worsening Covid 19 pneumonia is very likely. Objective - Vital Signs Vital signs: Vital Signs Temp 98.1 F 11/16/20 07:32 Pulse 66 11/16/20 07:32 Resp 24 11/16/20 08:00 BP 92/64 11/16/20 07:32 Pulse Ox 90 L 11/16/20 07:32 Intake & Output 11/15/20 11/16/20 11/16/20 18:59 06:59 18:59 Other: Voiding Method Toilet Incontinent # Voids 1 1 # Bowel Movements 1 1 - Exam Physical Exam: Revealed 45-year-old female obese, in no distress, presently on 15 L high flow nasal cannula but surprisingly asymptomatic. Head: Atraumatic, normocephalic. HEENT: PERRLA, EOMI, nonicteric, dry mucous membranes [Neck is supple.] [No neck masses.] [No thyromegaly.] [No JVD.] Chest: [Symmetrical chest expansion, crackles at the bases persists. Cardiac Exam: Distant S1 and S2, no S3 gallop, no murmur. Abdomen: [Obese, Soft, nontender, no megaly, no rebound, no guarding, normal bowel sounds.] Extremities: [No clubbing, no edema, no cyanosis.] Neurological Exam: Follows simple instructions, but extremely slow and has mental developmental delay Psychiatric: Normal mood, pleasant affect, slow mentation. Skin: No rashes. - Labs CBC & Chem 7: 11/14/20 06:17 11/16/20 05:19 Labs: Abnormal Lab Results - Last 24 Hours (Table) 11/15/20 11/15/20 11/15/20 Range/Units 11:59 12:44 17:27 Sodium 130 L (137-145) mmol/L Potassium 5.7 H (3.5-5.1) mmol/L Chloride (98-107) mmol/L Carbon Dioxide 20 L (22-30) mmol/L BUN 67 H (7-17) mg/dL Creatinine 1.55 H (0.52-1.04) mg/dL Glucose 414 H (74-99) mg/dL POC Glucose (mg/dL) 448 H 430 H (75-99) mg/dL Calcium 8.2 L (8.4-10.2) mg/dL 11/15/20 11/16/20 11/16/20 Range/Units 20:24 05:19 07:35 Sodium (137-145) mmol/L Potassium (3.5-5.1) mmol/L Chloride 109 H (98-107) mmol/L Carbon Dioxide (22-30) mmol/L BUN 60 H (7-17) mg/dL Creatinine 1.62 H (0.52-1.04) mg/dL Glucose 184 H (74-99) mg/dL POC Glucose (mg/dL) 377 H 224 H (75-99) mg/dL Calcium (8.4-10.2) mg/dL Microbiology - Last 24 Hours (Table) 11/11/20 12:04 Blood Culture - Preliminary Blood No Growth after 96 hours Assessment and Plan Assessment: Impression: Acute covid 19 pneumonia, with hypoxia during her hospital course.. Acute on chronic kidney disease. Acute E. coli urinary tract infection, on Rocephin Acute anion gap metabolic acidosis secondary to acute kidney injury. Resolved History of type 2 diabetes. History of developmental delay. History of hypertension. Possible component of diastolic congestive heart failure hence I will recommend echocardiogram with Doppler to assess LV function I would also recommend a BNP level, and a trial of Lasix 40 mg IV push 1. If no improvement then the findings are most likely related to her underlying Covid 19 pneumonia. Recommendation: Continue the Covid 19 cocktail, patient is out of the window for REM. Continue to monitor oxygenation and supply oxygen if necessary. Continue Decadron. Continue insulin. Trial of diuretics/Lasix 40 mg IV push 1 Echocardiogram with Doppler BNP level to be done today. Continue Rocephin for the E. coli urinary tract infection Continue close monitoring and treatment of sugars. Avoid nephrotoxic agents We'll continue to follow. Time with Patient: Less than 30
[2020-11-16 11:42] VITALS: BMI 33.9
[2020-11-16 12:04] LABS: Glucose,Whole Blood 346 mg/dL (75-99)
--- NOTE | 2020-11-16 13:28 | P.PN ---
Subjective Progress Note Date: 11/16/20 Patient is a 45-year-old the female with development delay was brought in by mother because of generalized weakness. Found to have Covid 19. Patient did have a low-grade fever yesterday as patient doesn't have any significant syndromes unsure when her symptoms started. Patient denied any shortness of b reath, body aches. Denied any diarrhea. Patient is found to have acute renal failure with creatinine of 2.71 hyponatremic along with metabolic acidosis highly elevated BUN of 6.9 baseline creatinine is around 1.5. Patient was also hypotensive patient is on anti-hypertensive medications which include KEILY inhibitor. Patient is receiving IV fluids at this time nephrology was consulted. Patient did receive a monoclonal antibody infusion today morning. 11/12/2020 Unfortunately patient is requiring oxygen and desaturated without oxygen because of which I'm consulted pulmonary patient will be started on Decadron do not have any repeat basic metabolic profile available at this time. Patient's blood sugars are very high patient will be started on long-acting insulin tonight along with sliding scale with each meal. Patient received monoclonal antibody infusion yesterday 11/13/2020 Patient is seen and evaluated in follow-up this morning continues to be on 2 L of oxygen with intermittent room air 90-91% and slightly hypotensive this morning. Pulmonary consulted and pending. Sugars continue to be elevated and will add pre-meal insulin along with sliding scale and long-acting and continue to monitor. She is maintained on dexamethasone along with heparin subcu injections and zinc supplements and will continue at this time. Urine culture finalized showing E. coli and patient is maintained on IV ceftriaxone and will continue. Will continue to hold antihypertensive medications. 11/14/2020 She is seen and evaluated today and continues to remove her oxygen although is now maintained on 4-5 L nasal cannula and maintaining 90-91% oxygen saturation. Patient's blood sugars continue to be elevated and have increased pre-meal and long-acting and will continue with sliding scale as well. Patient continues on dexamethasone along with heparin subcutaneous and zinc supplements. BMP labs finally resulted after 2 PM showing potassium again elevated at 5.7 and will give an amp of dextrose along with 10 units of insulin IV and repeat labs. Creatinine is improving at 1.55 and nephrology is following. Patient with intermittent low-grade fevers this morning of 99.8 and 99.0. Patient is currently afebrile this afternoon. Social work also following as patient will be going to rehab for continued PT/OT therapy once stabilized and discharged. 11/15/2020 Patient is seen this morning requiring more oxygen and currently on high flow nasal cannula at 15 L along with nonrebreather and 91%. Chest x-ray was done today showing worsening airspace infiltrates throughout both lung bhatti and a BNP was drawn and was 1830 and was given a dose of IV Lasix. Echo was ordered and pending. Pulmonary is following. Blood sugars continue to be elevated and will continue to adjust. Nephrology also following and creatinine today is 1.62 with a potassium of 4.9 and current sodium is 139. Review of systems: Patient is mostly nonverbal but does answer questions say she is fine for most of the questions. All inpatient medications were reviewed and appropriate changes in these med ications as dictated in the interval history and assessment and plan. Objective - Vital Signs Vital signs: Vital Signs Temp 98.1 F 11/16/20 07:32 Pulse 66 11/16/20 07:32 Resp 32 H 11/16/20 07:32 BP 92/64 11/16/20 07:32 Pulse Ox 90 L 11/16/20 07:32 Intake & Output 11/15/20 11/16/20 11/16/20 18:59 06:59 18:59 Other: Voiding Method Toilet Incontinent # Voids 1 1 # Bowel Movements 1 1 - Exam GENERAL: The patient is alert and mostly nonverbal unable to assess her orientation, not in any acute distress. Well developed, well nourished. Does appear to have some developmental delay HEENT: Pupils are round and equally reacting to light. EOMI. No scleral icterus. No conjunctival pallor. Normocephalic, atraumatic. No pharyngeal erythema. No thyromegaly. CARDIOVASCULAR: S1 and S2 present. No murmurs, rubs, or gallops. PULMONARY: Diminished breath sounds bilaterally with some scattered rhonchi and crackles noted. ABDOMEN: Soft, nontender, nondistended, normoactive bowel sounds. No palpable organomegaly. MUSCULOSKELETAL: No joint swelling or deformity. EXTREMITIES: No cyanosis, clubbing, or pedal edema. NEUROLOGICAL: Gross neurological examination did not reveal any focal deficits. SKIN: No rashes. - Labs CBC & Chem 7: 11/14/20 06:17 11/16/20 05:19 Labs: Abnormal Lab Results - Last 24 Hours (Table) 11/15/20 11/15/20 11/15/20 Range/Units 11:59 12:44 17:27 Sodium 130 L (137-145) mmol/L Potassium 5.7 H (3.5-5.1) mmol/L Chloride (98-107) mmol/L Carbon Dioxide 20 L (22-30) mmol/L BUN 67 H (7-17) mg/dL Creatinine 1.55 H (0.52-1.04) mg/dL Glucose 414 H (74-99) mg/dL POC Glucose (mg/dL) 448 H 430 H (75-99) mg/dL Calcium 8.2 L (8.4-10.2) mg/dL 11/15/20 11/16/20 11/16/20 Range/Units 20:24 05:19 07:35 Sodium (137-145) mmol/L Potassium (3.5-5.1) mmol/L Chloride 109 H (98-107) mmol/L Carbon Dioxide (22-30) mmol/L BUN 60 H (7-17) mg/dL Creatinine 1.62 H (0.52-1.04) mg/dL Glucose 184 H (74-99) mg/dL POC Glucose (mg/dL) 377 H 224 H (75-99) mg/dL Calcium (8.4-10.2) mg/dL Microbiology - Last 24 Hours (Table) 11/11/20 12:04 Blood Culture - Preliminary Blood No Growth after 96 hours Assessment and Plan Assessment: -Acute renal failure: Prerenal azotemia, from dehydration intravascular depletion from a infection. Creatinine is 1.62 with a BUN of 60 , nephrology following -Hyperkalemia, potassium is 4.9 -Covid 19 pneumonia, acute hypoxia. Patient was started on Covid vitamins patient will will be started on systemic steroids at this time patient received monoclonal antibody infusion. Pulmonary following patient requiring more oxygen and currently on 15 L high flow along with nonrebreather and chest x-ray shows worsening -Elevated BNP, echo was ordered and pending and will give a dose of IV Lasix, IV fluids have been discontinued. -Type 2 diabetes mellitus uncontrolled elevated blood sugars, patient is maintained on sliding scale along with pre-meal and long-acting which will be increased today and will continue to monitor and titrate accordingly -Abnormal urine analysis possibly asymptomatic bacteriuria patient was started on IV antibiotics urine cultures finalized showing E. coli and patient has received adequate dosing of antibiotics and will discontinue -Hypovolemic hyponatremia, improved current sodium is 139 -Non-anion gap as well as anion gap metabolic acidosis secondary to acute renal failure patient may have had lactic acidosis, improved -Chronic kidney disease stage III from diabetic nephropathy patient has trace protein in the urine. -Hyperlipidemia -Hypertension patient is presently hypotensive, continue to hold antihypertensives and will continue with beta eddie -DVT prophylaxis with subcutaneous heparin not a candidate for Lovenox because of renal failure Plan: Continue with current medications. Blood sugars continue to be uncontrolled and increased pre-meal along with long-acting and will continue to monitor. Patient requiring more oxygen currently maintained on 15 L high flow along with nonrebreather with a worsening chest x-ray and a BNP was drawn which was elevated and 2-D echo ordered and pending to assess for CHF for fluid volume overload or possibly secondary to worsening of Covid 19. Social work following and [facility] has accepted the patient once stabilized and discharged. Continue with Accu-Cheks before meals and at bedtime and insulins of all been increased and will monitor.
[2020-11-16 17:26] LABS: Glucose,Whole Blood 300 mg/dL (75-99)
--- NOTE | 2020-11-16 18:52 | PN ---
PROGRESS NOTE Patient is seen for followup for acute kidney injury. Today her oxygen requirements have increased. Patient is now on 100% non-rebreather this morning. She was otherwise awake and answering simple questions. Blood pressure was 92/64, heart rate 66 per minute. She is afebrile. Examination of lower extremities did not show any significant edema. Labs show sodium 139, potassium 4.9, chloride 109, BUN 60, serum creatinine 1.62. ASSESSMENT: 1. Acute kidney injury, acute tubular necrosis, secondary to underlying COVID infection. Serum creatinine slightly worse today. Rule out urine retention. 2. COVID-19 pneumonia, slightly worse today, being followed by Pulmonology. 3. Escherichia coli urinary tract infection. 4. Hyperkalemia associated with acute kidney injury and elevated blood sugars, currently improved, although blood sugars continue to fluctuate. PLAN: Check post-void residual. Rule out urine retention. Continue off of IV fluids. Repeat labs in a.m. MMSHANDRAL / THERESAN: [id number] /
[2020-11-16 19:54] LABS: Basophils % (A) 0 %; Eosinophils # (A) 0.1 k/uL (0-0.7); Eosinophils % (A) 1 %; HCT 25.8 % (34.0-46.0); Lymphocytes # (A) 0.4 k/uL (1.0-4.8); Lymphocytes % (A) 5 %; MCHC 34.1 g/dL (31.0-37.0); MCV 88.1 fL (80.0-100.0); Mean Platelet Volume 9.2; Monocytes # (A) 0.4 k/uL (0-1.0); Monocytes % (A) 4 %; Neutrophils # (A) 7.3 k/uL (1.3-7.7); Neutrophils % (A) 88 %; Platelet Count 231 k/uL (150-450); RBC 2.93 m/uL (3.80-5.40); RDW 13.8 % (11.5-15.5); WBC 8.4 k/uL (3.8-10.6)
[2020-11-16 20:26] LABS: Glucose,Whole Blood 273 mg/dL (75-99)
[2020-11-16] MEDS: LATANOPROST 0.005% OPHTH DROPS 2.5 ML BTL LEFT EYE SCH (20:28)
[2020-11-16] MEDS ORDERED: INSULIN DETEMIR (LEVEMIR) 100 UNIT/ML SYR SQ SCH (21:00)
[2020-11-17] MEDS: HEPARIN SODIUM,PORCINE/PF 5,000 UNIT/0.5 ML SYRINGE SQ SCH ×2 (08:06→14:34)
[2020-11-17] MEDS: METOPROLOL TARTRATE 50 MG TAB PO SCH (08:07)
[2020-11-17 08:52] LABS: Glucose,Whole Blood 124 mg/dL (75-99)
[2020-11-17 08:59] LABS: HCT 23.9 % (37.2-46.3); HGB 7.7 g/dL (12.0-15.0); MCH 30.2 pg (27.0-32.0); MCHC 32.2 g/dL (32.0-37.0); MCV 93.7 fL (80.0-97.0); Mean Platelet Volume 11.5 fL (9.5-12.2); Platelet Count 239 X 10*3/uL (140-440); RBC 2.55 X 10*6/uL (4.10-5.20); WBC 7.75 X 10*3/uL (4.50-10.00)
[2020-11-17] MEDS: INSULIN ASPART (NovoLOG) 100 UNIT/ML VIAL SQ SCH ×6 (09:21→18:07)
[2020-11-17] MEDS: ZINC SULFATE 220 MG CAP PO SCH (09:26)
[2020-11-17] MEDS: FENOFIBRATE 160 MG TAB PO SCH (09:26)
[2020-11-17] MEDS: ATORVASTATIN 20 MG TAB PO SCH (09:26)
[2020-11-17] MEDS: MIDODRINE 5 MG TAB PO SCH ×3 (09:27→18:07)
[2020-11-17] MEDS: PIOGLITAZONE 45 MG TAB PO SCH (09:27)
[2020-11-17] MEDS: REPAGLINIDE 1 MG TAB PO SCH ×3 (09:27→18:07)
[2020-11-17] MEDS: dexAMETHasone 2 MG TAB PO SCH (09:27)
[2020-11-17] MEDS: LINAGLIPTIN 5 MG TABLET PO SCH (09:27)
[2020-11-17] MEDS: ESCITALOPRAM 5 MG TAB PO SCH (09:27)
[2020-11-17] MEDS: CLOTRIMAZOLE 1% CREAM 30 GM TUBE TOPICAL SCH (09:28)
[2020-11-17] MEDS: TRIAMCINOLONE 0.1% CREAM 80 GM TUBE TOPICAL SCH (09:28)
--- NOTE | 2020-11-17 11:00 | ECHOF ---
Referral Reason:pulm edema MEASUREMENTS -------- HEIGHT: 167.6 cm WEIGHT: 95.3 kg BP: RVIDd: 2.9 cm (< 3.3) IVSd: 1.2 cm (0.6 - 1.1) LVIDd: 3.2 cm (3.9 - 5.3) LVPWd: 1.3 cm (0.6 - 1.1) IVSs: 1.7 cm LVIDs: 1.4 cm LVPWs: 1.6 cm Ao Diam: 2.7 cm (2.0 - 3.7) AV Cusp: 2.0 cm (1.5 - 2.6) LA Diam: 3.0 cm (2.7 - 3.8) MV EXCURSION: 19.740 mm (> 18.000) MV EF SLOPE: 71 mm/s (70 - 150) EPSS: 0.5 cm MV E William: 0.65 m/s MV DecT: 234 ms MV A William: 0.52 m/s MV E/A Ratio: 1.25 AR PHT: 489 ms RAP: 5.00 mmHg RVSP: 41.24 mmHg FINDINGS -------- Sinus rhythm. This was a technically adequate study. The left ventricular size is normal. There is mild concentric left ventricular hypertrophy. Overa ll left ventricular systolic function is normal with, an EF between 55 - 60 %. The right ventricle is normal in size. The left atrial size is normal. The right atrium was not well visualized. Interatrial and interventricular septum intact. Trace to mild aortic regurgitation. There is no evidence of aortic stenosis. Mild mitral regurgitation is present. [id number] tricuspid regurgitation present. There is mild to moderate pulmonary hypertension. The right ventricular systolic pressure, as measured by Doppler, is 41.24mmHg. There is no pulmonic regurgitation present. The aortic root size is normal. IVC Not well visulized. CONCLUSIONS -------- 1. The left ventricular size is normal. 2. There is mild concentric left ventricular hypertrophy. 3. Overall left ventricular systolic function is normal with, an EF between 55 - 60 %. 4. Trace to mild aortic regurgitation. 5. Mild mitral regurgitation is present. 6. [id number]-[id number] tricuspid regurgitation present. 7. There is mild to moderate pulmonary hypertension. 8. The right ventricular systolic pressure, as measured by Doppler, is 41.24mmHg. FRAME ALIGNER: Kaley Snyder RDCS
[2020-11-17 11:15] LABS: Basophils # (M) 0.08 X 10*3/uL (0.00-0.10); Eosinophils # (M) 0 X 10*3/uL (0.04-0.35); Lymphocytes # (M) 0.62 X 10*3/uL (0.90-5.00); Monocytes # (M) 0.31 X 10*3/uL (0.20-1.00); Myelocytes % 1 % (0-0); Neutrophils # (M) 6.67 X 10*3/uL (2.00-8.90); Neutrophils % (M) 86 %
--- NOTE | 2020-11-17 12:05 | P.PN ---
Subjective Progress Note Date: 11/17/20 Principal diagnosis: Acute covid 19 pneumonia, and acute hypoxic respiratory failure This is a 45-year-old female with history of developmental delay. Lives with her parents, noted to be generally weak by her mother, and she fell fell at home which is unusual for the patient according to her mother. No self-inflicted injury. And according to her mother she has not been eating well, did not have any shortness of breath or diarrhea. She was noted to have low-grade fever in the ER. And according to her mother she was generally weak. Hence patient was tested for rotavirus, and she was noted to be positive for covid 19 chest x-ray showed multiple focal infiltrates bilaterally left more so than right. And it is consistent with Covid 19 pneumonia. Her O2 saturation was mostly in the 90s since admission except one O2 saturation was 89% on room air. Labs showed evid ence of leukopenia with WBC count of 3.2, thrombocytopenia with platelets of 101. And the relative lymphopenia. Patient was also noted to have possibly acute kidney injury with BUN 69 and creatinine 2.71. She was also noted to have a mild anion gap metabolic acidosis with anion gap of 17. Her sugars were high as high as 452. Negative ketones in the urine. Considering her abnormal chest x-ray, abnormal renal profile, abnormal labs and clinical symptoms, patient was admitted and this consult was initiated. The patient herself is a very poor historian. She does have significant developmental delay. Patient was reevaluated today on 11/14/2020, sitting in bed, very comfortable, on 2 L nasal cannula, and her O2 saturation earlier today was 86% on room air. Patient is not in any distress. Labs today showed a relatively normal CBC, no inflammatory markers were ordered for today. Reevaluated today on 11/15/2020, patient remains on 5 L nasal cannula, O2 saturation is in the low 90s. She does not seem to be in any distress, patient seems to be very pleasant, but she is not a great historian considering her developmental delay. CBC is relatively normal. Her renal functioning is impr oving and her potassium is 5.7 creatinine is down to 1.74. Sugars are running high at 338. This is being addressed by the admitting physician. Reevaluated today on 11/16/2020, patient is now on a higher oxygen flow the patient was raised up to 15 L high flow nasal cannula. Surprisingly the patient is in no distress whatsoever, sitting in bed, eating, very comfortable, and asymptomatic. Labs today were basically unremarkable, BUN remains elevated at 60 creatinine 1.6, admission creatinine was 2.71 chest x-ray is showing diffuse bilateral interstitial edema or infiltrates, I will recommend a dose of Lasix to be given as this may be a component of fluid overload or none diastolic congestive heart failure. In the meantime I will recommend an echocardiogram and order BNP level. And the possibility of worsening Covid 19 pneumonia is very likely. Reevaluated today on 11/17/2020, patient is doing worse clinically, her O2 saturation became low and she is now on high flow oxygen 90% FiO2 and 15 L flow. She is also on a nonrebreather mask. And her O2 saturation is in the 80s, however the patient is not noted to be in distress. Her echocardiogram showed no evidence of LV dysfunction, it did show evidence of elevated right-sided pressures mild to moderate pulmonary hypertension. And mild mitral regurgitation. BNP level was borderline elevated at 1830. Patient did receive Lasix, did not make much of a difference. Her renal profile is about the same creatinine is 1.62. Follow-up chest x-ray will be done in a.m. chest x-ray from yesterday showed worseningi nfiltrates bilaterally. Objective - Vital Signs Vital signs: Vital Signs Temp 100.3 F H 11/17/20 07:37 Pulse 74 11/17/20 07:37 Resp 25 H 11/17/20 07:37 BP 99/48 11/17/20 07:37 Pulse Ox 82 L 11/17/20 02:00 Intake & Output 11/16/20 11/17/20 11/17/20 18:59 06:59 18:59 Output Total 2320 700 Balance -2320 -700 Weight 95.254 kg Output: Urine 2320 700 Straight 1620 Uretheral (Hernandez) 700 Other: Voiding Method Toilet Toilet Incontinent Incontinent # Voids 1 1 - Exam Physical Exam: Revealed 45-year-old female obese, in no distress, presently on high flow oxygen using nonrebreather mask and airv, again the patient is not in distress. Head: Atraumatic, normocephalic. HEENT: PERRLA, EOMI, nonicteric, dry mucous membranes [Neck is supple.] [No neck masses.] [No thyromegaly.] [No JVD.] Chest: [Symmetrical chest expansion, crackles at the bases persists. Cardiac Exam: Distant S1 and S2, no S3 gallop, no murmur. Abdomen: [Obese, Soft, nontender, no megaly, no rebound, no guarding, normal bowel sounds.] Extremities: [No clubbing, no edema, no cyanosis.] Neurological Exam: Follows simple instructions, but extremely slow and has mental developmental delay Psychiatric: Normal mood, pleasant affect, slow mentation. Skin: No rashes. - Labs CBC & Chem 7: 11/17/20 04:26 11/16/20 05:19 Labs: Abnormal Lab Results - Last 24 Hours (Table) 11/16/20 11/16/20 11/16/20 Range/Units 11:55 17:24 19:13 RBC 2.93 L (3.80-5.40) m/uL Hgb 8.8 L D (11.4-16.0) gm/dL Hct 25.8 L (34.0-46.0) % Absolute Nucleated RBC (0.00-0.00) X 10*3/uL Myelocytes % (0-0) % Lymphocytes # 0.4 L (1.0-4.8) k/uL Lymphocytes # (Manual) (0.90-5.00) X 10*3/uL Eosinophils # (Manual) (0.04-0.35) X 10*3/uL NRBC/100 WBC Diff (0.0-0.0) /100 WBCS POC Glucose (mg/dL) 346 H 300 H (75-99) mg/dL 11/16/20 11/17/20 11/17/20 Range/Units 20:25 04:26 08:44 RBC 2.55 L (3.80-5.40) m/uL Hgb 7.7 L (11.4-16.0) gm/dL Hct 23.9 L (34.0-46.0) % Absolute Nucleated RBC 0.12 H (0.00-0.00) X 10*3/uL Myelocytes % 1 H (0-0) % Lymphocytes # (1.0-4.8) k/uL Lymphocytes # (Manual) 0.62 L (0.90-5.00) X 10*3/uL Eosinophils # (Manual) 0 L (0.04-0.35) X 10*3/uL NRBC/100 WBC Diff 1.5 H (0.0-0.0) /100 WBCS POC Glucose (mg/dL) 273 H 124 H (75-99) mg/dL Microbiology - Last 24 Hours (Table) 11/11/20 12:04 Blood Culture - Preliminary Blood No Growth after 120 hours Assessment and Plan Assessment: Impression: Acute covid 19 pneumonia, with hypoxia during her hospital course.. Acute on chronic kidney disease. Acute E. coli urinary tract infection, on Rocephin Acute anion gap metabolic acidosis secondary to acute kidney injury. Resolved History of type 2 diabetes. History of developmental delay. History of hypertension. Clinically no evidence of congestive heart failure Mild to moderate pulmonary hypertension Recommendation: Continue the Covid 19 cocktail, patient is out of the window for REM. Continue to monitor oxygenation and supply oxygen if necessary. Continue Decadron. Continue insulin. Not a candidate for toci considering the patient has underlying UTI. Continue Rocephin for the E. coli urinary tract infection Continue close monitoring and treatment of sugars. Avoid nephrotoxic agents Consider transferring the patient I see if her condition gets any worse. We'll try a unit of convalescent plasma. We'll continue to follow. Time with Patient: Less than 30
[2020-11-17 12:24] LABS: Glucose,Whole Blood 152 mg/dL (75-99)
--- NOTE | 2020-11-17 12:37 | US ---
EXAMINATION TYPE: US venous doppler duplex UE DATE OF EXAM: 11/17/2020 COMPARISON: NONE CLINICAL HISTORY: 45-year-old female arm swelling, bruising, on heparin, covid. No redness. On hepar in SIDE PERFORMED: Bilateral FINDINGS: Household Refrigeration Mechanic notes:Extremely limited exam due to patient body habitus, small vein size and swelling at wrists. Patient unable to lay flat due to breathing and machinery. Right Arm: Negative for acute DVT in portions seen. Veins appear small in size. Left Arm: Negative for acute DVT in portions seen. Veins appear small in size. IMPRESSION: Very limited study due to patient's condition and inability to optimally position for the exam. No DV T within the visualized portions of the bilateral upper extremities. The business objects consultant comments on rela tively small vein size throughout.
--- NOTE | 2020-11-17 13:30 | P.PN ---
Subjective Progress Note Date: 11/17/20 Patient is a 45-year-old the female with development delay was brought in by mother because of generalized weakness. Found to have Covid 19. Patient did have a low-grade fever yesterday as patient doesn't have any significant syndromes unsure when her symptoms started. Patient denied any shortness of b reath, body aches. Denied any diarrhea. Patient is found to have acute renal failure with creatinine of 2.71 hyponatremic along with metabolic acidosis highly elevated BUN of 6.9 baseline creatinine is around 1.5. Patient was also hypotensive patient is on anti-hypertensive medications which include KEILY inhibitor. Patient is receiving IV fluids at this time nephrology was consulted. Patient did receive a monoclonal antibody infusion today morning. 11/12/2020 Unfortunately patient is requiring oxygen and desaturated without oxygen because of which I'm consulted pulmonary patient will be started on Decadron do not have any repeat basic metabolic profile available at this time. Patient's blood sugars are very high patient will be started on long-acting insulin tonight along with sliding scale with each meal. Patient received monoclonal antibody infusion yesterday 11/13/2020 Patient is seen and evaluated in follow-up this morning continues to be on 2 L of oxygen with intermittent room air 90-91% and slightly hypotensive this morning. Pulmonary consulted and pending. Sugars continue to be elevated and will add pre-meal insulin along with sliding scale and long-acting and continue to monitor. She is maintained on dexamethasone along with heparin subcu injections and zinc supplements and will continue at this time. Urine culture finalized showing E. coli and patient is maintained on IV ceftriaxone and will continue. Will continue to hold antihypertensive medications. 11/14/2020 She is seen and evaluated today and continues to remove her oxygen although is now maintained on 4-5 L nasal cannula and maintaining 90-91% oxygen saturation. Patient's blood sugars continue to be elevated and have increased pre-meal and long-acting and will continue with sliding scale as well. Patient continues on dexamethasone along with heparin subcutaneous and zinc supplements. BMP labs finally resulted after 2 PM showing potassium again elevated at 5.7 and will give an amp of dextrose along with 10 units of insulin IV and repeat labs. Creatinine is improving at 1.55 and nephrology is following. Patient with intermittent low-grade fevers this morning of 99.8 and 99.0. Patient is currently afebrile this afternoon. Social work also following as patient will be going to rehab for continued PT/OT therapy once stabilized and discharged. 11/15/2020 Patient is seen this morning requiring more oxygen and currently on high flow nasal cannula at 15 L along with nonrebreather and 91%. Chest x-ray was done today showing worsening airspace infiltrates throughout both lung bhatti and a BNP was drawn and was 1830 and was given a dose of IV Lasix. Echo was ordered and pending. Pulmonary is following. Blood sugars continue to be elevated and will continue to adjust. Nephrology also following and creatinine today is 1.62 with a potassium of 4.9 and current sodium is 139. 11/16/2020 Patient is seen and evaluated this morning and respiratory status continues to be worse and is maintained on high flow nasal cannula along with nonrebreather and discussed with nursing staff and respiratory about starting Airvo she continues to require more oxygen and has difficulty keeping the nonrebreather on. She does have developmental delay. Patient is sitting up in the bed and appears to be in no acute distress. Patient is pleasant and responds to okay, yes, I'm fine when talking and asking questions. Patient continued to have increased bruising and swelling noted of the upper left extremity and underwent bilateral venous Doppler of the upper extremities which was negative for bilateral DVTs. Pulmonary is following and ordering a unit of convalescent plasma. Patient is off IV antibiotics and was treated for E. coli in the urine and continues with indwelling Hernandez catheter for I&O's. Per nursing staff it was reported that there was a large dark tarry stool noted. Hemoglobin is 7.7 with no active bleeding noted at this time. No further reports of dark tarry stools and will continue to monitor closely. Patient was maintained on subcutaneous heparin and will hold right now. No Reports of chest pain or palpitations. Patient continues with low-grade intermittent fevers. All inpatient medications were reviewed and appropriate changes in these medic ations as dictated in the interval history and assessment and plan. Objective - Vital Signs Vital signs: Vital Signs Temp 100.3 F H 11/17/20 07:37 Pulse 74 11/17/20 07:37 Resp 25 H 11/17/20 07:37 BP 99/48 11/17/20 07:37 Pulse Ox 82 L 11/17/20 02:00 Intake & Output 11/16/20 11/17/20 11/17/20 18:59 06:59 18:59 Output Total 2320 700 Balance -2320 -700 Weight 95.254 kg Output: Urine 2320 700 Straight 1620 Uretheral (Hernandez) 700 Other: Voiding Method Toilet Toilet Incontinent Incontinent # Voids 1 1 - Exam GENERAL: The patient is alert and mostly nonverbal unable to assess her orientation, not in any acute distress. Well developed, well nourished. Does appear to have some developmental delay. Unable to keep nonrebreather on and being transitioned to Airvo she is requiring high flow 15 L of oxygen. HEENT: Pupils are round and equally reacting to light. EOMI. No scleral icterus. No conjunctival pallor. Normocephalic, atraumatic. No pharyngeal erythema. No thyromegaly. CARDIOVASCULAR: S1 and S2 present. No murmurs, rubs, or gallops. PULMONARY: Diminished breath sounds bilaterally with some scattered rhonchi and crackles noted. ABDOMEN: Soft, nontender, nondistended, normoactive bowel sounds. No palpable organomegaly. MUSCULOSKELETAL: No joint swelling or deformity. EXTREMITIES: No cyanosis, clubbing, or pedal edema. NEUROLOGICAL: Gross neurological examination did not reveal any focal deficits. SKIN: No rashes. Large left upper extremity bruising noted Doppler study was negative for DVT - Labs CBC & Chem 7: 11/17/20 04:26 11/16/20 05:19 Labs: Abnormal Lab Results - Last 24 Hours (Table) 11/16/20 11/16/20 11/16/20 Range/Units 11:55 17:24 19:13 RBC 2.93 L (3.80-5.40) m/uL Hgb 8.8 L D (11.4-16.0) gm/dL Hct 25.8 L (34.0-46.0) % Absolute Nucleated RBC (0.00-0.00) X 10*3/uL Lymphocytes # 0.4 L (1.0-4.8) k/uL NRBC/100 WBC Diff (0.0-0.0) /100 WBCS POC Glucose (mg/dL) 346 H 300 H (75-99) mg/dL 11/16/20 11/17/20 11/17/20 Range/Units 20:25 04:26 08:44 RBC 2.55 L (3.80-5.40) m/uL Hgb 7.7 L (11.4-16.0) gm/dL Hct 23.9 L (34.0-46.0) % Absolute Nucleated RBC 0.12 H (0.00-0.00) X 10*3/uL Lymphocytes # (1.0-4.8) k/uL NRBC/100 WBC Diff 1.5 H (0.0-0.0) /100 WBCS POC Glucose (mg/dL) 273 H 124 H (75-99) mg/dL Microbiology - Last 24 Hours (Table) 11/11/20 12:04 Blood Culture - Preliminary Blood No Growth after 120 hours Assessment and Plan Assessment: -Acute renal failure: Prerenal azotemia, from dehydration intravascular depl etion from a infection. PA and labs , nephrology following -Hyperkalemia, improved -Covid 19 pneumonia, acute hypoxia. Patient was started on Covid vitamins patient will will be started on systemic steroids at this time patient received monoclonal antibody infusion. Pulmonary following patient requiring more oxygen and currently on 15 L high flow along with nonrebreather and chest x-ray shows w orsening, patient continues to remove nonrebreather and will attempt Airvo for better oxygenation. Convalescent plasma being ordered. -Elevated BNP, echo shows mild concentric left ventricular hypertrophy with overall LV systolic function normal with an EF of 55-60% with some mild to moderate pulmonary hypertension noted along with mild mitral and tricuspid regurgitation present -Type 2 diabetes mellitus uncontrolled elevated blood sugars, patient is maintained on sliding scale along with pre-meal and long-acting which will be increased today and will continue to monitor and titrate accordingly -Abnormal urinalysis possibly asymptomatic bacteriuria with urine cultures finalizing showing E. coli and patient was treated adequately with the Rocephin and has been discontinued -Hypovolemic hyponatremia, improved -Non-anion gap as well as anion gap metabolic acidosis secondary to acute renal failure patient may have had lactic acidosis, improved -Chronic kidney disease stage III from diabetic nephropathy patient has trace protein in the urine. -Hyperlipidemia -Hypertension patient is presently hypotensive, continue to hold antihypertensives and will continue with beta eddie -DVT prophylaxis with subcutaneous heparin not a candidate for Lovenox because of renal failure, currently on hold secondary to black tarry stool episode Plan: Continue with current medications. Blood sugars more controlled and will continue with current regimen and continue Accu-Cheks before meals and at bedtime and monitor closely as patient's oral intake is poor secondary to respiratory status and requires assistance with meals. Patient requiring more oxygen currently being transitioned to Airvo high flow. Pulmonary is following and has ordered a unit of convalescent plasma and if patient's condition continues to deteriorate possible transfer to ICU for closer monitoring. Will hold heparin subcutaneous and monitor for further episodes of bleeding and if continues will consult GI. No episodes as of today. Hemoglobin is 7.7 and will monitor closely. Prognosis Remains guarded.
[2020-11-17 17:58] LABS: Glucose,Whole Blood 319 mg/dL (75-99)
[2020-11-17] MEDS ORDERED: SODIUM BICARB 8.4% 50 ML SYR (1 MEQ/ML) ONE ×3 (19:34→21:32)
[2020-11-17] MEDS ORDERED: EPINEPHrine 10 ML SYRINGE (0.1 MG/ML) ONE (19:34)
[2020-11-17] MEDS ORDERED: CALCIUM CHLORIDE 100 MG/ML 10 ML SYRINGE ONE (19:34)
[2020-11-17 19:51] LABS: Glucose,Whole Blood 375 mg/dL (75-99)
--- NOTE | 2020-11-17 20:47 | PN ---
PROGRESS NOTE Patient is seen for followup for acute kidney injury associated with underlying COVID- 19 pneumonia. Patient's serum creatinine had worsened yesterday and a post-voidal residual was significantly elevated around 900 mL; therefore Hernandez catheter was placed. This morning patient is comfortable, awake. She is not in any acute distress. She is requiring high-flow oxygen. Blood pressure was 99/48. She has a temperature of 100.3 degrees Fahrenheit. No edema noted in the lower extremities. 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 Labs from yesterday show serum creatinine 1.62. I do not see any labs from today. ASSESSMENT: 1. Acute kidney injury, acute tubular necrosis, associated with underlying COVID infection, nonoliguric, with an element of urine retention and obstructive uropathy as well, status post Hernandez catheter placement yesterday. 2. Hyperkalemia associated with acute kidney injury and urine retention. Repeat labs today. Blood sugars were also elevated, which contributed to the hyperkalemia. 3. Escherichia coli urinary tract infection. 4. COVID pneumonia, slightly worse from 2 days ago, being followed by Pulmonology. 5. Acute hypoxic respiratory failure secondary to COVID pneumonia. PLAN: Continue with the Hernandez catheter. Check labs today. Repeat labs in a.m. MMODL / IJN: [id number] /
[2020-11-17] MEDS ORDERED: HEPARIN SODIUM 1,000 UN/ML (10ML VL) IV ONE (20:59)
[2020-11-17] MEDS ORDERED: HEPARIN SODIUM 1,000 UN/ML (10ML VL) IV PRN (20:59)
[2020-11-17] MEDS ORDERED: HEPARIN SOD,PORK IN 0.45% NACL 25,000 UNIT in 0.45% NACL 1 250ML.BAG IV SCH (21:00)
[2020-11-17 21:09] LABS: Basophils # (A) 0.9 k/uL (0-0.2); Basophils % (A) 3 %; Eosinophils % (A) 0 %; HCT 28.3 % (34.0-46.0); HGB 8.4 gm/dL (11.4-16.0); Hypochromasia Marked; Lymphocytes # (A) 5.2 k/uL (1.0-4.8); Lymphocytes % (A) 15 %; MCH 30.1 pg (25.0-35.0); MCHC 29.7 g/dL (31.0-37.0); Macrocytosis Slight; Mean Platelet Volume 9.6; Monocytes % (A) 3 %; Neutrophils # (A) 26.4 k/uL (1.3-7.7); Neutrophils % (A) 75 %; Platelet Count 386 k/uL (150-450); RDW 13.8 % (11.5-15.5)
[2020-11-17 21:19] LABS: Albumin 2.6 g/dL (3.5-5.0); Calcium 10.6 mg/dL (8.4-10.2); Magnesium 3.5 mg/dL (1.6-2.3); Potassium 4.9 mmol/L (3.5-5.1); Total Bilirubin 0.9 mg/dL (0.2-1.3); Total Protein 5.2 g/dL (6.3-8.2)
--- NOTE | 2020-11-17 21:19 | XR ---
EXAMINATION TYPE: XR chest 1V portable DATE OF EXAM: 11/17/2020 COMPARISON: 11/16/2020 INDICATION: Intubation TECHNIQUE: Single frontal view of the chest is obtained. FINDINGS: The heart size is normal. The pulmonary vasculature is normal. There is diffuse increased lung markings bilaterally. There is placement of an endotracheal tube with the tip 3.2 cm beyond the raymundo. This should be pull ed back 5 cm for more typical placement. IMPRESSION: 1. Diffuse increased lung markings which are nonspecific. 2. Placement of an endotracheal tube. Adjustment is recommended discussed above A Red level critical message alert has been initiated for Bear Daniels via the [employer] tical Results System on 11/17/2020 9:16 PM. This message alert has been sent to Bear Daniels via the preferences provided by the clinician for the receipt of Radiology Critical Findings. Message ID [id number].
[2020-11-17 21:25] LABS: Band Neutrophils % 12 %; Lymphocytes # (M) 5.56 k/uL (1.0-4.8); Metamyelocytes # (M) 1.64 k/uL (0); Metamyelocytes % 5 %; Monocytes # (M) 0.65 k/uL (0-1.0); Myelocytes # (M) 0.98 k/uL (0); Myelocytes % 3 %; Neutrophils % (M) 63 %; Nucleated Red Blood Cells 4 /100 WBC (0-0); Total Cells Counted 200; WBC 32.7 k/uL (3.8-10.6)
[2020-11-17 21:26] LABS: Toxic Granulation Present
[2020-11-17 21:27] LABS: INR 1.3 (<1.2)
[2020-11-17] MEDS ORDERED: CISATRACURIUM 2 MG/ML 5 ML VIAL IV ONE (22:10)
[2020-11-17] MEDS ORDERED: MORPHINE SULFATE (100 MG/2 ML) 100 MG in SODIUM CHLORIDE 0.9% 100 ML IV SCH (22:30)
[2020-11-17 23:40] VITALS: BP 161/95; PULSE 114; RESP 19; TEMP 96.4
--- NOTE | 2020-11-18 01:28 | P.EN ---
Code Blue Note Activated at 7:36 pm. Arrived on the scene shortly after. The patient was found to be unresponsive and hypoxic by the RN upon vitals check. Reviewed the chart and discussed the case with the RN in detail. Patient was admitted to the hospital with COVID pneumonia with gradually increasing oxygen requirements. The patient was noted to be pulseless for which CPR was initiated. Last well known was 1 hour prior. ROSC was achieved at 7:42. The patient was susbequently transferred to the MICU where she then proceeded to arrest 4 additional times with ROSC achieved after 1-2 rounds of CPR each time. Discussed the case with the patient's parents in person. The parents came to see the patient at the bedside following her 3rd episode of arrest. The patient subsequently developed seizures. Discussed the case via phone with the parents again following the 5th arrest at which time the family noted to halt further CPR. They requested to have the patient be placed on comfort care and be allowed to pass peacefully. The patient at 10:32 pm. Please refer to code-sheets for further details including medications administered and the timeline for each arrest. The primary team was notified. Wood Crafter at the bedside during transition to comfort care.
--- NOTE | 2020-11-18 08:22 | P.DS ---
Providers Date of admission: 11/11/20 09:51 Expected date of discharge: 11/18/20 Attending physician: Haider Love MD Consults: 11/11/20 09:51 Consult Physician Urgent Consulting Provider: Eloisa Barber Consult Reason/Comments: Acute kidney injury Do you want consulting provider notified?: Yes 11/12/20 11:09 Consult Physician Routine Consulting Provider: Mara Salguero Consult Reason/Comments: COVID Do you want consulting provider notified?: Yes Primary care physician: [facility] Course: Final Diagnosis -Acute renal failure: Prerenal azotemia, from dehydration intravascular depletion from a infection -Hyperkalemia, improved -Covid 19 pneumonia, acute hypoxia -Elevated BNP, echo shows mild concentric left ventricular hypertrophy with over all LV systolic function normal with an EF of 55-60% with some mild to moderate pulmonary hypertension noted along with mild mitral and tricuspid regurgitation present -Type 2 diabetes mellitus uncontrolled elevated blood sugars -Abnormal urinalysis possibly asymptomatic bacteriuria with urine cultures finalizing showing E. coli and patient was treated adequately with the Rocephin -Hypovolemic hyponatremia, improved -Non-anion gap as well as anion gap metabolic acidosis secondary to acute renal failure patient may have had lactic acidosis, improved -Chronic kidney disease stage III from diabetic nephropathy -Hyperlipidemia -Hypertension patient is presently hypotensive -DVT prophylaxis -no code Discharge disposition Patient has . Per nursing documentation time of was 223111/17/2020 Preliminary cause of Covid 19 pneumonia Hospital Course This was a 45-year-old the female with development delay was brought in by mother because of generalized weakness. Found to have Covid 19. Patient did have a low-grade fever yesterday as patient doesn't have any significant syndromes unsure when her symptoms started. Patient denied any shortness of breath, body aches. Denied any diarrhea. Patient is found to have acute renal failure with creatinine of 2.71 hyponatremic along with metabolic acidosis highly elevated BUN of 6.9 baseline creatinine is around 1.5. Patient was also hypotensive patient is on anti-hypertensive medications which include KEILY inhibitor which will be held. Patient was placed on IV fluids and nephrology was following. Patient did receive a monoclonal antibody in the emergency department. 11/17/2020 Patient is seen and evaluated this morning and respiratory status continues to be worse and is maintained on high flow nasal cannula along with nonrebreather and discussed with nursing staff and respiratory about starting Airvo she continues to require more oxygen and has difficulty keeping the nonrebreather on. She does have developmental delay. Patient is sitting up in the bed and appears to be in no acute distress. Patient is pleasant and responds to okay, yes, I'm fine when talking and asking questions. Patient continued to have increased bruising and swelling noted of the upper left extremity and underwent bilateral venous Doppler of the upper extremities which was negative for bilateral DVTs. Pulmonary is following and ordering a unit of convalescent plasma. Patient is off IV antibiotics and was treated for E. coli in the urine and continues with indwelling Hernandez catheter for I&O's. Per nursing staff it wa s reported that there was a large dark tarry stool noted. Hemoglobin is 7.7 with no active bleeding noted at this time. No further reports of dark tarry stools and will continue to monitor closely. Patient was maintained on subcutaneous heparin and will hold right now. No Reports of chest pain or palpitations. Patient continues with low-grade intermittent fevers. 11/17/20201935 Per nursing staff, patient was found to be cyanotic and unresponsive during rounds and code blue was initiated. CPR was started and ACLS protocol followed and ROSC was obtained and patient was intubated during the code. Patient lost pulse again and continued with ACLS protocol. Patient was brought to the ICU and family was notified. Patient coded multiple times while in the ICU. Family wanted comfort measures. Patient was made comfort measures and 2231. Please refer to previous dictations and code sheets for further HPI. Patient Condition at Discharge: Poor Plan - Discharge Summary Discharge Rx Participant: No New Discharge Prescriptions: No Action Triamcinolone 0.1% Cream [Kenalog 0.1% Cream] 1 applicatio TOPICAL BID Latanoprost/Pf [Latanoprost 0.005% Eye Drop] 1 drop LEFT EYE HS sitaGLIPtin PHOSPHATE [Januvia] 100 mg PO DAILY Atorvastatin Calcium [Lipitor] 20 mg PO DAILY Sodium Bicarbonate Tab 650 mg PO BID PRN PRN Reason: Gi Upset Repaglinide [Prandin] 2 mg PO TID Pioglitazone HCl 45 mg PO DAILY Metoprolol Tartrate [Lopressor] 50 mg PO BID gemfibroziL [Lopid] 600 mg PO AC-BID Escitalopram Oxalate [Lexapro] 5 mg PO DAILY Econazole 1% Cream [Spectazole] 1 applic TOPICAL BID Canagliflozin [Invokana] 100 mg PO DAILY Benazepril/Hydrochlorothiazide [Benazepril-Hctz 10-12.5 mg Tab] 1 tab PO DAILY Discharge Medication List Atorvastatin Calcium [Lipitor] 20 mg PO DAILY 11/11/20 [History] Benazepril/Hydrochlorothiazide [Benazepril-Hctz 10-12.5 mg Tab] 1 tab PO DAILY 11/11/20 [History] Canagliflozin [Invokana] 100 mg PO DAILY 11/11/20 [History] Econazole 1% Cream [Spectazole] 1 applic TOPICAL BID 11/11/20 [History] Escitalopram Oxalate [Lexapro] 5 mg PO DAILY 11/11/20 [History] Latanoprost/Pf [Latanoprost 0.005% Eye Drop] 1 drop LEFT EYE HS 11/11/20 [History] Metoprolol Tartrate [Lopressor] 50 mg PO BID 11/11/20 [History] Pioglitazone HCl 45 mg PO DAILY 11/11/20 [History] Repaglinide [Prandin] 2 mg PO TID 11/11/20 [History] Sodium Bicarbonate Tab 650 mg PO BID PRN 11/11/20 [History] Triamcinolone 0.1% Cream [Kenalog 0.1% Cream] 1 applicatio TOPICAL BID 11/11/20 [History] gemfibroziL [Lopid] 600 mg PO AC-BID 11/11/20 [History] sitaGLIPtin PHOSPHATE [Januvia] 100 mg PO DAILY 11/11/20 [History] Follow up Appointment(s)/Referral(s): Becky Mccracken MD [Primary Care Provider] - 1-2 days Discharge Disposition: - Preliminary Cause of Preliminary Cause of : Covid 19 pneumonia
[2020-11-21 14:35] LABS: HGB 8.8 gm/dL (11.4-16.0)
--- NOTE | 2021-01-09 16:48 | CDI ---
Documentation Clarification Form Date:01/17/21 From: Joe Franklin Admit Date: 11/11/2020 09:51:00 AM Patient Name: Katherin Lomeli Visit Number: [id number] Discharge Date: 11/17/2020 10:32:00 PM ATTENTION: The Clinical Documentation Specialists (CDI) and [facility] Coding Staff appreciate your assistance in clarifying documentation. Please respond to the clarification below the line at the bottom and electronically sign. The CDI & [facility] Coding staff will review the response and follow-up if needed. Please note: Queries are made part of the Legal Health Record. If you have any questions, please contact the author of this message via ITS. Dr. Dutton, The patient presented with the following clinical indicators. Additional clarification regarding the etiology/cause of the clinical indicators is requested. History/Risk Factors: Complicated UTI and COVID positive with PNA Clinical Indicators: ED: WBC: 3.29 Lactic acid: lactic acidosis Blood cultures: not done Vitals signs: BP 98/55, Temp 100, HR 91, RR 18, CR 2.71 Treatment: IV monoclonal antibody Antibiotics: IV rocephin In your professional opinion, please clarify if these findings signify one of the following conditions: [ ] Sepsis POA [ ] Sepsis, Not POA [ ] Sepsis ruled out [ ] SIRS, without underlying infectious process [ ] Other, please specify [ ] Unable to determine SIRS Criteria: 2 or more of the following may indicate sirs -Temperature < 96.8F (36C) or > 101.0F (38.3C) -Heart Rate > 90 bpm -Respiratory Rate > 20 breaths/min or PaCO2 < 32 mmHg -White Blood Cell Count > 12,000 or < 4,000 cells/mm3 or > Sepsis MISHA YBARRA
== END 2020-11-17 22:32 | disposition expired | DRG 871 ==
LOC: EC 07:56 → 4SSUR 09:51 → 1SOBS 10:12 → 6NMEDSUR 17:53 → 2SICU 11-17 19:46
PROVIDERS: ADMIT Internal Medicine; ATTEND Internal Medicine
DX: A41.89 Other specified sepsis (principal); U07.1 COVID-19; N17.0 Acute kidney failure with tubular necrosis; J12.82 Pneumonia due to coronavirus disease 2019; J96.01 Acute respiratory failure with hypoxia; N39.0 Urinary tract infection, site not specified; E87.1 Hypo-osmolality and hyponatremia; E87.2 Acidosis; N18.30 Chronic kidney disease, stage 3 unspecified; Z68.33 Body mass index [BMI] 33.0-33.9, adult; I12.9 Hypertensive chronic kidney disease with stage 1 through stage 4 chronic kidney disease, or unspecified chronic kidney disease; E86.1 Hypovolemia; E86.0 Dehydration; B96.20 Unspecified Escherichia coli [E. coli] as the cause of diseases classified elsewhere; E11.22 Type 2 diabetes mellitus with diabetic chronic kidney disease; Z66 Do not resuscitate; I46.9 Cardiac arrest, cause unspecified; Z51.5 Encounter for palliative care; E11.65 Type 2 diabetes mellitus with hyperglycemia; D69.6 Thrombocytopenia, unspecified; W19.XXXA Unspecified fall, initial encounter; Y92.009 Unspecified place in unspecified non-institutional (private) residence as the place of occurrence of the external cause; I95.9 Hypotension, unspecified; E78.5 Hyperlipidemia, unspecified; D72.810 Lymphocytopenia; R62.50 Unspecified lack of expected normal physiological development in childhood; E87.5 Hyperkalemia; I27.20 Pulmonary hypertension, unspecified; I08.1 Rheumatic disorders of both mitral and tricuspid valves; E66.9 Obesity, unspecified; I45.10 Unspecified right bundle-branch block; Z79.84 Long term (current) use of oral hypoglycemic drugs; Z79.899 Other long term (current) drug therapy; N13.9 Obstructive and reflux uropathy, unspecified; E11.21 Type 2 diabetes mellitus with diabetic nephropathy
CPT/HCPCS: 36415; 36600; 71045; 71046; 76770; 80048; 80053; 81001; 82550; 82805; 83735; 83880; 84484; 85025; 85610; 85730; 86850; 86900; 86901; 87040; 87077; 87086; 87186; 87635; 92950; 93005; 93306; 93970; 94760; 99285